=== PATIENT | male | born 1945 | race Caucasian/White ===

== ENCOUNTER 2018-10-09 10:06 | Inpatient (IN) | payer MEDICARE, OTHER ==
[2018-10-09] MEDS ORDERED: SODIUM CHLORIDE 0.9% 500 ML IV ONE (10:19)
[2018-10-09] MEDS ORDERED: 0.9 % SODIUM CHLORIDE 1000ML 1,000 ML IV PRN ×2 (10:19→13:19)
--- NOTE | 2018-10-09 10:27 | Emergency Department Record ---
History of Present Illness - General Chief complaint: Nausea, Vomiting, Diarrhea Stated complaint: LOOSE STOOLS Time Seen by Provider: 10/09/18 10:18 Source: Patient Mode of Arrival: Stretcher Limitations: No limitations - History of Present Illness Initial comments: Pt to ED by EMS with from home for one week of diarrhea. Pt relates frequent brown watery diarrhea that he is unable to "control". Pt is soiled with feces to feet and arm. Pt relates an increase in weakness to the point of needing a walker and falling to the floor. There is no report of CP or BIB. Denies ARIZA or head injury with fall. found him on the floor and after rest he was able to get himself up. Pt relates alcohol use on a daily basis. No recent illness, no AB treatments, no travel or new foods. There is no nausea or vomiting. MD complaint: Diarrhea Onset/Timin -: Week(s) Associated Abdominal Pain: No Severity: Moderate Severity scale (1-10): 4 Associated Symptoms: Weakness - Related Data Home Medications Medication Instructions Recorded Confirmed Last Taken Atorvastatin Calcium 20 mg PO QHS 10/09/18 10/09/18 Unknown Carvedilol [Coreg] 3.125 mg PO BID 10/09/18 10/09/18 Unknown Cholecalciferol (Vitamin D3) 2,000 unit SQ DAILY 10/09/18 10/09/18 Unknown [Vitamin D3] Diphenhydramine HCl [Benadryl] 25 mg PO DAILY 10/09/18 10/09/18 Unknown Losartan Potassium 25 mg PO DAILY 10/09/18 10/09/18 Unknown Pregabalin [Lyrica] 25 mg PO BID 10/09/18 10/09/18 Unknown Previous Rx's Medication Instructions Recorded Clonidine HCl [Catapres ER] 0.1 mg PO BID #14 tab 12/23/14 Allergies Allergy/AdvReac Type Severity Reaction Status Date / Time cephalexin monohydrate Allergy HIVES Verified 12/23/14 17:40 [From Keflex] enalapril Allergy PT UNSURE Verified 10/09/18 10:56 OF REACTION Review of Systems Constitutional: Reports: Weakness. Denies: Chills, Fever Eyes: Denies: Eye discharge, Photophobia ENT: Denies: Congestion, Ear pain, Hearing loss Respiratory: Denies: Cough, Dyspnea, Wheezes Cardiovascular: Denies: Arrhythmia, Chest pain, Palpitations, Syncope Endocrine: Reports: Fatigue. Denies: Polydipsia, Polyuria Gastrointestinal: Reports: As per HPI, Diarrhea. Denies: Hematochezia Genitourinary: Denies: Dysuria, Frequency, Hematuria Musculoskeletal: Denies: Arthralgia, Back pain Skin: Reports: Bruising Neurological: Reports: Weakness. Denies: Confusion, Headache, Seizure, Tremors Psychiatric: Denies: Anxiety Hematological/Lymphatic: Denies: Anemia Past Medical History - SOCIAL HISTORY Smoking Status: Current every day smoker - RESPIRATORY Hx Respiratory Disorders: No - CARDIOVASCULAR Hx Cardio Disorders: Yes Hx Hypertension: Yes Comment:: High cholestrol - NEURO Hx Neuro Disorders: No - GI Hx GI Disorders: Yes Hx GI Bleed: Yes - Hx Genitourinary Disorders: Yes Hx UTI: Yes - ENDOCRINE Hx Endocrine Disorders: Yes Hx Diabetes: Yes - MUSCULOSKELETAL Hx Musculoskeletal Disorders: No - PSYCH Hx Psych Problems: No - HEMATOLOGY/ONCOLOGY Hx Hematology/Oncology Disorders: No Physical Exam - General General Appearance: Alert, Oriented x3, Cooperative, Mild distress - Head Head exam: Atraumatic Head exam detail: negative: Abrasion, Contusion, Salvador's sign, Hematoma - Eye Eye exam: Normal appearance, PERRL - ENT ENT exam: Normal exam, Mucous membranes moist, Normal external ear exam, Normal orophraynx, TM's normal bilaterally - Neck Neck exam: Normal inspection, Full ROM. negative: Tenderness - Respiratory Respiratory exam: Normal lung sounds bilaterally. negative: Rhonchi, Wheezes - Cardiovascular Cardiovascular Exam: negative: Regular rate, Normal rhythm, Tachycardia Peripheral Pulses: 2+: Radial (R), Radial (L) - GI/Abdominal GI/Abdominal exam: Soft, Normal bowel sounds. negative: Guarding, Rigid, Tenderness - Rectal Rectal exam: Heme (-) stool. negative: Bloody stool, Fecal impaction, Hemorrhoids - Extremities Extremities exam: Full ROM, Pedal edema (bilateral ankle swelling). negative: Calf tenderness, Tenderness - Neurological Neurological exam: Alert, CN II-XII intact, Oriented X3 - Psychiatric Psychiatric exam: Normal affect, Normal mood - Skin Skin exam: Abrasion (to left knee - Bruising to right knee and hip. ) Course - Reevaluation(s) Reevaluation #1: 10/09/18 11:57 Spoke in private with and daughter. Discussed findings and plan. Admission. Aware of alcohol abuse. No hx of withdraw or seizure. Procedures - EKG Initial Date: 10/09/18 Time: 10:44 EKG: Normal EKG (SR at 84) - Stool Hemoccult Procedural Steps Taken: stool placed in appropria, developer placed on stool, controls appropriately po Hemoccult result: negative Medical Decision Making - Lab Data Result diagrams: 10/09/18 10:10 10/09/18 10:10 Disposition Disposition: Admit Clinical Impression: Hyponatremia, Renal insufficiency, Elevated bilirubin, Transaminasemia, Alcohol abuse, Gait instability, Cough Diarrhea Qualifiers: Diarrhea type: unspecified type Qualified Code(s): R19.7 - Diarrhea, unspecified Disposition: Still a Patient at [facility] Decision to Admit: Admit from ER Decision to Admit Date: 10/09/18 Decision to Admit Time: 11:55 Accepting Physician: Elise Time Discussed w/Accepting Physician: 11:55 Condition: (3) Guarded Forms: Patient Portal Access Time of Disposition: 11:57 Quality - Quality Measures Quality Measures: N/A - Blood Pressure Screening View Details: Yes Does Patient Have Any of the Following: No, Active Dx of HTN Blood Pressure Classification: Pre-Hypertensive BP Reading Systolic Measurement: 127 Diastolic Measurement: 64 Screening for High Blood Pressure: Patient Exclusion, Hx of HTN [[id number]]
[2018-10-09 10:48] LABS: BASO % 0.3 % (0-6); EOS % 0.1 % (0-6); GRAN % 67.1 % (47-80); HEMATOCRIT 37.6 % (42.0-52.0); HEMOGLOBIN 13.4 gm/dl (14.0-18.0); LYMPH % 18.5 % (16-45); MEAN CELL VOLUME 98.4 fl (81-97); MEAN CORPUSCULAR HGB CONC 35.6 g/dl (32-36); MEAN PLATELET VOLUME 9.9 fl (7.4-10.4); PLATELET COUNT 112 K/uL (130-400); RED BLOOD COUNT 3.82 M/uL (4.40-5.70); WHITE BLOOD COUNT W/O DIFF 7.2 K/uL (4.2-12.2)
[2018-10-09 10:58] LABS: BILIRUBIN,TOTAL 1.6 mg/dL (0.2-1.0); CREATININE 1.8 mg/dL (0.7-1.2)
[2018-10-09 11:03] LABS: ALB/GLOB RATIO 1.3 (1.1-1.8)
--- NOTE | 2018-10-09 12:29 | History & Physical ---
History of Present Illness - Date of Service Date of Service for History & Physical: 10/10/18 - History of Present Illness History of Present Illness: Mr. Koroma is a 73 y/o male with a one week history of 6-7 loose stools daily for the past 1 week. The patient says that he had diarrhea about 1 month ago which was attributed to his Metformin which was stopped and his symptoms resolved. But he again began having symptoms last week despite not starting any new medications or having change in diet. The patient reports generalized weakness and two falls at home during this period. He says that he has had falls before due to his diabetic neuropathy but this seems to have gotten worse with the abdominal symptoms. He denies abdominal pain, fevers, chills, recent sick contacts or travel. The patient says that he does drink alcohol, about 6 beers daily and mixed cocktails in the evening. He says that his last alcoholic beverage was yesterday evening. On arrival to [facility] ED the patient had another loose, non-bloody bowel movement and also desaturated significantly from a persistent cough he had. Chest xray is suspicious for a right tony lesion and he is noted to be in contact with a person with community acquired pneumonia. Travel Screening - Travel/Exposure Within Last 30 Days Have you traveled within the last 30 days?: No Review of Systems Constitutional: Reports: Weakness. Denies: Chills, Fever Eyes: Denies: Eye discharge, Photophobia ENT: Denies: Congestion, Ear pain, Hearing loss Respiratory: Denies: Cough, Dyspnea, Wheezes Cardiovascular: Denies: Arrhythmia, Chest pain, Palpitations, Syncope Endocrine: Reports: Fatigue. Denies: Polydipsia, Polyuria Gastrointestinal: Reports: As per HPI, Diarrhea. Denies: Hematochezia Genitourinary: Denies: Dysuria, Frequency, Hematuria Musculoskeletal: Denies: Arthralgia, Back pain Skin: Reports: Bruising Neurological: Reports: Weakness. Denies: Confusion, Headache, Seizure, Tremors Psychiatric: Denies: Anxiety Hematological/Lymphatic: Denies: Anemia Past Medical History - SOCIAL HISTORY Smoking Status: Current every day smoker - RESPIRATORY Hx Respiratory Disorders: No - CARDIOVASCULAR Hx Cardio Disorders: Yes Hx Hypertension: Yes Comment:: High cholestrol - NEURO Hx Neuro Disorders: No - GI Hx GI Disorders: Yes Hx GI Bleed: Yes - Hx Genitourinary Disorders: Yes Hx UTI: Yes - ENDOCRINE Hx Endocrine Disorders: Yes Hx Diabetes: Yes - MUSCULOSKELETAL Hx Musculoskeletal Disorders: No - PSYCH Hx Psych Problems: No - HEMATOLOGY/ONCOLOGY Hx Hematology/Oncology Disorders: No Family Medical History Any Significant Family History?: No H&P Meds/Allergies - Allergies Allergies: Allergies Allergy/AdvReac Type Severity Reaction Status Date / Time cephalexin monohydrate Allergy HIVES Verified 12/23/14 17:40 [From Keflex] enalapril Allergy PT UNSURE Verified 10/09/18 10:56 OF REACTION - Home Medications Home Medications Medication Instructions Recorded Confirmed Last Taken Atorvastatin Calcium 20 mg PO QHS 10/09/18 10/09/18 Unknown Carvedilol [Coreg] 3.125 mg PO BID 10/09/18 10/09/18 Unknown Cholecalciferol (Vitamin D3) 2,000 unit SQ DAILY 10/09/18 10/09/18 Unknown [Vitamin D3] Diphenhydramine HCl [Benadryl] 25 mg PO DAILY 10/09/18 10/09/18 Unknown Losartan Potassium 25 mg PO DAILY 10/09/18 10/09/18 Unknown Pregabalin [Lyrica] 25 mg PO BID 10/09/18 10/09/18 Unknown Previous Rx's Medication Instructions Recorded Clonidine HCl [Catapres ER] 0.1 mg PO BID #14 tab 12/23/14 - Active Medications Active Medications: Current Medications Sodium Chloride () 1,000 mls @ 125 mls/hr IV .Q8H PRN PRN Reason: LARGE VOLUME IV Last Admin: 10/09/18 10:30 Dose: 125 mls/hr Physical Exam - Vital Signs Vital Signs: Vital Signs - Last 24 Hrs Temp Pulse Pulse Resp BP BP Pulse Ox 10/09/18 11:40 83 18 141/70 96 10/09/18 10:18 98.2 F 79 18 127/64 91 L - General General Appearance: Alert, Oriented x3, Cooperative, Mild distress Limitations: No limitations - Head Head exam: Atraumatic Head exam detail: negative: Abrasion, Contusion, Salvador's sign, Hematoma - Eye Eye exam: Normal appearance, PERRL - ENT ENT exam: Normal exam, Mucous membranes moist, Normal external ear exam, Normal orophraynx, TM's normal bilaterally - Neck Neck exam: Normal inspection, Full ROM. negative: Tenderness - Respiratory Respiratory exam: Normal lung sounds bilaterally. negative: Rhonchi, Wheezes - Cardiovascular Cardiovascular Exam: negative: Regular rate, Normal rhythm, Tachycardia Peripheral Pulses: 2+: Radial (R), Radial (L), Dorsalis Pedis (R), Dorsalis Pedis (L) - GI/Abdominal GI/Abdominal exam: Soft, Normal bowel sounds. negative: Guarding, Rigid, Tenderness - Rectal Rectal exam: Heme (-) stool. negative: Bloody stool, Fecal impaction, Hemorrhoids - Extremities Extremities exam: Full ROM, Pedal edema (bilateral ankle swelling, pitting +1 ) . negative: Calf tenderness, Tenderness - Neurological Neurological exam: Alert, CN II-XII intact, Oriented X3 - Psychiatric Psychiatric exam: Normal affect, Normal mood - Skin Skin exam: Abrasion (to left knee - Bruising to right knee and hip. ) Results - Labs Result Diagrams: 10/10/18 06:17 10/10/18 06:17 Labs Last 24 Hours: Laboratory Results - last 24 hr 10/09/18 10/09/18 10/09/18 10:10 10:10 10:45 WBC 7.2 RBC 3.82 L Hgb 13.4 L Hct 37.6 L MCV 98.4 H MCH 35.0 H MCHC 35.6 RDW 12.0 Plt Count 112 L MPV 9.9 Gran % 67.1 Lymphocytes % 18.5 Monocytes % 14.0 H Eosinophils % 0.1 Basophils % 0.3 Sodium 125 L Potassium 3.5 Chloride 81 L Carbon Dioxide 27.0 Anion Gap 17.0 H BUN 24 H Creatinine 1.8 H Estimated GFR 40 Random Glucose 108 Calcium 8.9 Magnesium Total Bilirubin 1.60 H AST 331 H ALT 68 H Alkaline Phosphatase 99 Total Protein 7.0 Albumin 4.0 Globulin 3.0 Albumin/Globulin Ratio 1.3 Ethyl Alcohol 0.010 10/09/18 12:02 WBC RBC Hgb Hct MCV MCH MCHC RDW Plt Count MPV Gran % Lymphocytes % Monocytes % Eosinophils % Basophils % Sodium Potassium Chloride Carbon Dioxide Anion Gap BUN Creatinine Estimated GFR Random Glucose Calcium Magnesium 1.5 L Total Bilirubin AST ALT Alkaline Phosphatase Total Protein Albumin Globulin Albumin/Globulin Ratio Ethyl Alcohol VTE H&P Assessment - Risk for VTE Risk for VTE: Yes Risk Level: High Risk Assessment Date: 10/09/18 Risk Assessment Time: 16:05 VTE Orders Placed or Will Be Placed: Yes AMI H&P Plan - EKG Initial Date: 10/09/18 Time: 10:44 EKG: Normal EKG (SR at 84) Plan - Inpatient Certification Inpatient Certification: Diarrhea/Weakness/Dehydration requiring IVF. 10/09/18 16:05 - Detailed Diagnosis and Plan (1) Diarrhea Current Visit: Yes Status: Acute Qualifiers: Diarrhea type: unspecified type Qualified Code(s): R19.7 - Diarrhea, unspecified Base Code: R19.7 - DIARRHEA, UNSPECIFIED Comment: 10/09/18: - DDx: infectious viral vs bacterial, medication induced. - Stool studies ordered: leukocytes, C diff, fecal occult blood. - IVF bolused in ED 500mL, continuous fluids @ 100mL/hr. (2) Alcohol abuse Current Visit: Yes Status: Acute Base Code: F10.10 - ALCOHOL ABUSE, UNCOMPLICATED Comment: 10/09/18: - 6-8 beers daily, liquor daily. - last drink approx 18 hours ago. - CIWA score <13, check Q24H - Cont to monitor daily for signs of withdrawal. - Thiamine ordered. No folate due allergic skin reaction. (3) Hyponatremia Current Visit: Yes Status: Acute Base Code: E87.1 - HYPO-OSMOLALITY AND HYPONATREMIA Comment: 10/09/18: - Likely hypovolemic hypovolemia due to ongoing diarrhea. - Na 125 - Repletion with Nacl 0.9% 100mL/hr. - Target Na repletion over the next 12-24 hours is 130. (4) Renal insufficiency Current Visit: Yes Status: Acute Base Code: N28.9 - DISORDER OF KIDNEY AND URETER, UNSPECIFIED Comment: 10/09/18: - Bun/Cr: 24/1.8 - Fluid challenge with bolus Nacl and continuous over 24 hours. - Check BMP with morning labs. (5) Transaminasemia Current Visit: Yes Status: Acute Base Code: R74.0 - NONSPEC ELEV OF LEVELS OF TRANSAMNS & LACTIC ACID DEHYDRGNSE Comment: 10/09/18: - AST/ALT 331/68 - Hx of Etoh abuse with cirrhotic liver. (6) Right middle lobe pulmonary infiltrate Current Visit: Yes Status: Acute Base Code: R91.8 - OTHER NONSPECIFIC ABNORMAL FINDING OF LUNG FIELD Comment: 10/09/18: - Cough, desaturations <90s on admission. - CXR: shows right middle lobe infiltrate or atelectasis. - Starting Levaquin 750mg IV Q24H - Oxygen to maintain sats > 92 % - Albuterol nebs Q4H PRN (7) Frequent falls Current Visit: Yes Status: Acute Base Code: R29.6 - REPEATED FALLS Comment : 10/09/18: - Due to diabetic neuropathy, weakness and Etoh use. - Fall precuations w/ bed alarm and assistance with ambulation. (8) Diabetes mellitus, type II Current Visit: Yes Status: Acute Base Code: E11.9 - TYPE 2 DIABETES MELLITUS WITHOUT COMPLICATIONS Comment: 10/09/18: - Was on Metformin at home but held due to diarrhea. - Insulin low dose sliding scale ordered. - Accuchecks TIDAC - ADA diet (9) DVT prophylaxis Current Visit: Yes Status: Acute Base Code: [id number] - Comment: 10/09/18: - Lovenox 40mg SQ QD (10) Hypomagnesemia Current Visit: Yes Status: Acute Base Code: E83.42 - HYPOMAGNESEMIA Comment: 09/26/18: - Mg 1.5 - Replete with 2gm Mg and recheck magnesium. (11) HTN (hypertension) Current Visit: Yes Status: Acute Base Code: I10 - ESSENTIAL (PRIMARY) HYPERTENSION Comment: 10/09/18: - Resume home meds. (12) Full code status Current Visit: Yes Status: Acute Base Code: Z78.9 - OTHER SPECIFIED HEALTH STATUS Comment: 10/09/18: - Pt is full code
[2018-10-09 15:14] LABS: URINE APPEARANCE CLEAR; URINE BILIRUBIN NEGATIVE (NEGATIVE); URINE BLOOD LARGE (NEGATIVE); URINE GLUCOSE (UA) NEGATIVE (NEGATIVE); URINE KETONE TRACE (NEGATIVE); URINE LEUKOCYTE ESTERASE NEGATIVE (NEGATIVE); URINE NITRITE NEGATIVE (NEGATIVE)
[2018-10-09 15:15] LABS: URINE COLOR AMBER
[2018-10-09 15:24] LABS: URINE AMORPHOUS SEDIMENT 1+; URINE RBC 21 - 35 (NONE SEEN); URINE WBC NONE SEEN (0-2/hpf)
[2018-10-09] MEDS: ENOXAPARIN 40 MG/0.4 ML SYR SQ SCH (17:12)
[2018-10-09] MEDS: LEVOFLOXACIN 500MG IVPB 500 MG/100 ML BAG IVPB SCH (17:34)
[2018-10-09] MEDS: NOVOLOG FLEXPEN (INSULIN ASPART) 100 UNITS/ML SQ SCH (18:31)
[2018-10-09] MEDS ORDERED: PNEUM 13-VAL/PF 0.5 ML IM ONE (19:48)
[2018-10-09] MEDS ORDERED: MAGNESIUM SULFATE 16 MEQ in 0.9 % SODIUM CHLORIDE 100ML 100 ML IV ONE (20:42)
[2018-10-09] MEDS: ALBUTEROL SULFATE (0.083%) 2.5 MG/3 ML NEB INH PRN (21:03)
[2018-10-09] MEDS: CLONIDINE HCL 0.1 MG TABLET PO SCH (22:05)
[2018-10-09] MEDS: ATORVASTATIN 20 MG TABLET PO SCH (22:06)
[2018-10-09] MEDS: CARVEDILOL 12.5 MG TABLET PO SCH (22:06)
[2018-10-09] MEDS: PREGABALIN 50 MG CAPSULE PO SCH (22:06)
[2018-10-10 06:30] LABS: HEMATOCRIT 32.2 % (42.0-52.0); HEMOGLOBIN 11.5 gm/dl (14.0-18.0); MEAN CELL VOLUME 98.5 fl (81-97); MEAN CORPUSCULAR HGB CONC 35.7 g/dl (32-36); MEAN PLATELET VOLUME 9.4 fl (7.4-10.4); PLATELET COUNT 88 K/uL (130-400); RED BLOOD COUNT 3.27 M/uL (4.40-5.70); RED CELL DISTRIBUTION WIDTH 11.7 % (11.5-14.5); WHITE BLOOD COUNT W/O DIFF 7.1 K/uL (4.2-12.2)
[2018-10-10 06:31] LABS: MEAN CORPUSCULAR HEMOGLOBIN 35.1 pg (27-33)
[2018-10-10 06:53] LABS: ALB/GLOB RATIO 1.4 (1.1-1.8); ALBUMIN 3.2 g/dL (4.0-5.0); ALKALINE PHOSPHATASE 78 U/L (55-149); ALT/SGPT 55 U/L (<41); AST/SGOT 222 U/L (10.0-50.0); BLOOD UREA NITROGEN 14 mg/dL (8-23); CREATININE 0.9 mg/dL (0.7-1.2); EST GLOMERULAR FILTRATION RATE > 60 mL/min; GLUCOSE,RANDOM 111 mg/dL (74-109); TOTAL PROTEIN 5.5 g/dL (6.6-8.7)
[2018-10-10] MEDS ORDERED: PANTOPRAZOLE SODIUM 40 MG TABLET PO SCH (07:00)
--- NOTE | 2018-10-10 07:20 | RADIOLOGY REPORT ---
EXAM: CHEST, TWO VIEWS HISTORY: FALL, COUGH, WEAKNESS. TECHNIQUE: Two views of the chest were obtained. Comparison: Chest radiograph 12/23/14. FINDINGS: The cardiac silhouette is within normal size limits. The thoracic aorta is calcified. Suggestion of a mild right infrahilar pulmonary opacity. No pleural fluid collection or pneumothorax seen. IMPRESSION: SUGGESTION OF A MILD RIGHT INFRAHILAR PULMONARY OPACITY WHICH COULD REPRESENT ATELECTASIS OR ACUTE AIR SPACE DISEASE SUCH PNEUMONIA. JOB NUMBER: [id number] [facility]
--- NOTE | 2018-10-10 07:23 | RADIOLOGY REPORT ---
EXAM: ABDOMEN, TWO VIEWS HISTORY: COUGH, WEAKNESS, FALL. TECHNIQUE: Supine and upright AP views of the abdomen were obtained. Comparison: Lumbar radiograph 07/23/17. FINDINGS: No visible pneumoperitoneum. Multiple gas containing nondilated small bowel loops are seen throughout the abdomen. Small to moderate volume of stool scattered throughout the abdomen. Gas is noted within the rectum. No visible pneumoperitoneum. Scattered vascular calcifications. Serpiginous areas of sclerosis within both femoral heads suggesting osteonecrosis. IMPRESSION: 1. NONOBSTRUCTIVE BOWEL GAS PATTERN. 2. SMALL TO MODERATE COLONIC STOOL BURDEN. 3. 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 JOB NUMBER: [id number] [facility]
[2018-10-10] MEDS ORDERED: POTASSIUM CHLORIDE 20 MEQ/15ML CUP PO ONE (08:36)
[2018-10-10] MEDS ORDERED: POTASSIUM CHLORIDE 20 MEQ TABLET PO ONE (08:36)
[2018-10-10] MEDS ORDERED: POTASSIUM CHL 20MEQ IN 1L NS 20 MEQ in 0.9 % SODIUM CHLORIDE 1000ML 1 BAG IV SCH ×2 (09:30)
[2018-10-10] MEDS: NOVOLOG FLEXPEN (INSULIN ASPART) 100 UNITS/ML SQ SCH ×3 (09:38→17:52)
[2018-10-10] MEDS: CLONIDINE HCL 0.1 MG TABLET PO SCH ×2 (09:39→22:50)
[2018-10-10] MEDS: CHOLECALCIFEROL 1,000 UNIT TABLET PO SCH (09:39)
[2018-10-10] MEDS: ENOXAPARIN 40 MG/0.4 ML SYR SQ SCH (09:40)
[2018-10-10] MEDS: PREGABALIN 50 MG CAPSULE PO SCH ×2 (09:40→22:50)
[2018-10-10] MEDS: LOSARTAN POTASSIUM 25 MG TABLET PO SCH (09:40)
[2018-10-10] MEDS: CARVEDILOL 12.5 MG TABLET PO SCH ×2 (09:42→22:50)
[2018-10-10] MEDS: ALBUTEROL SULFATE (0.083%) 2.5 MG/3 ML NEB INH PRN (10:09)
--- NOTE | 2018-10-10 10:20 | Physician Progress Note ---
Subjective - Date Date of Physician Progress Note: 10/10/18 Objective - Vital Signs Vital Signs: Vital Signs - Last 24 Hrs Temp Pulse Pulse Pulse Resp BP BP 10/10/18 09:09 99.2 F 83 18 10/09/18 22:00 98.1 F 93 H 17 198/98 10/09/18 21:03 85 20 10/09/18 21:00 84 18 10/09/18 16:00 98.0 F 76 18 136/80 10/09/18 15:21 98.0 F 10/09/18 13:51 83 18 10/09/18 11:40 83 18 141/70 10/09/18 10:18 98.2 F 79 18 127/64 BP Pulse Ox 10/10/18 09:09 147/83 97 10/09/18 22:00 172/92 96 10/09/18 21:03 97 10/09/18 21:00 10/09/18 16:00 95 10/09/18 15:21 10/09/18 13:51 10/09/18 11:40 96 10/09/18 10:18 91 L - General General Appearance: Alert, Oriented x3, Cooperative, Mild distress Limitations: No limitations - Head Head exam: Atraumatic Head exam detail: negative: Abrasion, Contusion, Salvador's sign, Hematoma - Eye Eye exam: Normal appearance, PERRL - ENT ENT exam: Normal exam, Mucous membranes moist, Normal external ear exam, Normal orophraynx, TM's normal bilaterally - Neck Neck exam: Normal inspection, Full ROM. negative: Tenderness - Respiratory Respiratory exam: Normal lung sounds bilaterally. negative: Rhonchi, Wheezes - Cardiovascular Cardiovascular Exam: negative: Regular rate, Normal rhythm, Tachycardia Peripheral Pulses: 2+: Radial (R), Radial (L), Dorsalis Pedis (R), Dorsalis Pedis (L) - GI/Abdominal GI/Abdominal exam: Soft, Normal bowel sounds. negative: Guarding, Rigid, Tenderness - Rectal Rectal exam: Heme (-) stool. negative: Bloody stool, Fecal impaction, Hemorrhoids - Extremities Extremities exam: Full ROM, Pedal edema (bilateral ankle swelling, pitting +1 ) . negative: Calf tenderness, Tenderness - Neurological Neurological exam: Alert, CN II-XII intact, Oriented X3 - Psychiatric Psychiatric exam: Normal affect, Normal mood - Skin Skin exam: Abrasion (to left knee - Bruising to right knee and hip. ) Assessment and Plan - Assessment and Plan (1) Diarrhea Current Visit: Yes Status: Acute Qualifiers: Diarrhea type: unspecified type Qualified Code(s): R19.7 - Diarrhea, unspecified Base Code: R19.7 - DIARRHEA, UNSPECIFIED Comment: 10/10/18: - DDx: infectious viral vs bacterial, medication induced. - Stool studies ordered: leukocytes, C diff, fecal occult blood. - IVF bolused in ED 500mL, continuous fluids @ 100mL/hr. - 1 loose bowel movement last night. (2) Alcohol abuse Current Visit: Yes Status: Acute Base Code: F10.10 - ALCOHOL ABUSE, UNCOMPLICATED Comment: 10/10/18: - 6-8 beers daily, liquor daily. - last drink approx 18 hours ago. - CIWA score <13, check Q24H - Cont to monitor daily for signs of withdrawal. - Thiamine ordered. No folate due allergic skin reaction. (3) Hyponatremia Current Visit: Yes Status: Acute Base Code: E87.1 - HYPO-OSMOLALITY AND HYPONATREMIA Comment: 10/10/18: - Likely hypovolemic hypovolemia due to ongoing diarrhea. - Na 125 --> 128 - Repletion with Nacl 0.9% 100mL/hr. - Target Na repletion over the next 12-24 hours is 130. (4) Renal insufficiency Current Visit: Yes Status: Acute Base Code: N28.9 - DISORDER OF KIDNEY AND URETER, UNSPECIFIED Comment: 10/10/18: - Bun/Cr: 24/1.8 --> 14/0.9 -resolved. - Repeat labs in the morning. (5) Transaminasemia Current Visit: Yes Status: Acute Base Code: R74.0 - NONSPEC ELEV OF LEVELS OF TRANSAMNS & LACTIC ACID DEHYDRGNSE Comment: 10/10/18: - AST/ALT 331/68 --> 222/55 - Hx of Etoh abuse with cirrhotic liver. (6) Right middle lobe pulmonary infiltrate Current Visit: Yes Status: Acute Base Code: R91.8 - OTHER NONSPECIFIC ABNORMAL FINDING OF LUNG FIELD Comment: 10/10/18: - Cough, desaturations <90s on admission. - CXR: shows right middle lobe infiltrate or atelectasis. - Starting Levaquin 750mg IV Q24H - Oxygen to maintain sats > 92 % - Albuterol nebs Q4H PRN (7) Frequent falls Current Visit: Yes Status: Acute Base Code: R29.6 - REPEATED FALLS Comment : 10/10/18: - Due to diabetic neuropathy, weakness and Etoh use. - Fall precuations w/ bed alarm and assistance with ambulation. (8) Diabetes mellitus, type II Current Visit: Yes Status: Acute Base Code: E11.9 - TYPE 2 DIABETES MELLITUS WITHOUT COMPLICATIONS Comment: 10/10/18: - Insulin low dose sliding scale ordered. - Accuchecks TIDAC - ADA diet (9) Hypomagnesemia Current Visit: Yes Status: Acute Base Code: E83.42 - HYPOMAGNESEMIA Comment: 10/10/18: - Mg 1.5 - Replete with 2gm Mg and recheck magnesium. (10) DVT prophylaxis Current Visit: Yes Status: Acute Base Code: [id number] - Comment: 10/10/18: - Lovenox 40mg SQ QD (11) HTN (hypertension) Current Visit: Yes Status: Acute Base Code: I10 - ESSENTIAL (PRIMARY) HYPERTENSION Comment: 10/10/18: - Resume home meds. (12) Full code status Current Visit: Yes Status: Acute Base Code: Z78.9 - OTHER SPECIFIED HEALTH STATUS Comment: 10/10/18: - Pt is full code (13) Hypokalemia Current Visit: Yes Status: Acute Base Code: E87.6 - HYPOKALEMIA Comment: 10/10/18: - K 3.2 - Repeltion with Klor-con 40meq PO, 20meq IVP. - Check potassium this afternoon. Results - Labs Result Diagrams: 10/10/18 06:17 10/10/18 06:17 Labs Last 24 Hours: Laboratory Results - last 24 hr 10/09/18 10/09/18 10/09/18 10:10 10:10 10:45 WBC 7.2 RBC 3.82 L Hgb 13.4 L Hct 37.6 L MCV 98.4 H MCH 35.0 H MCHC 35.6 RDW 12.0 Plt Count 112 L MPV 9.9 Gran % 67.1 Neutrophils % Band Neutrophils % Lymphocytes % 18.5 Monocytes % 14.0 H Eosinophils % 0.1 Basophils % 0.3 Lymphocytes Monocytes Basophils Eosinophil Count Sodium 125 L Potassium 3.5 Chloride 81 L Carbon Dioxide 27.0 Anion Gap 17.0 H BUN 24 H Creatinine 1.8 H Estimated GFR 40 POC Glucose Random Glucose 108 Calcium 8.9 Magnesium Total Bilirubin 1.60 H AST 331 H ALT 68 H Alkaline Phosphatase 99 Total Protein 7.0 Albumin 4.0 Globulin 3.0 Albumin/Globulin Ratio 1.3 Vitamin B12 Urine Color Urine Appearance Urine pH Ur Specific [place] Urine Protein Urine Glucose (UA) Urine Ketones Urine Blood Urine Nitrite Urine Bilirubin Urine Urobilinogen Ur Leukocyte Esterase Urine RBC Urine WBC Ur Epithelial Cells Amorphous Sediment Stool Occult Blood Ethyl Alcohol 0.010 C. difficile Ag & Toxin 10/09/18 10/09/18 10/09/18 12:02 15:00 18:10 WBC RBC Hgb Hct MCV MCH MCHC RDW Plt Count MPV Gran % Neutrophils % Band Neutrophils % Lymphocytes % Monocytes % Eosinophils % Basophils % Lymphocytes Monocytes Basophils Eosinophil Count Sodium Potassium Chloride Carbon Dioxide Anion Gap BUN Creatinine Estimated GFR POC Glucose 143 H Random Glucose Calcium Magnesium 1.5 L Total Bilirubin AST ALT Alkaline Phosphatase Total Protein Albumin Globulin Albumin/Globulin Ratio Vitamin B12 Urine Color [place] Urine Appearance Clear Urine pH 6.0 Ur Specific [place] 1.020 Urine Protein 30 mg/dl H Urine Glucose (UA) Negative Urine Ketones Trace H Urine Blood Large H Urine Nitrite Negative Urine Bilirubin Negative Urine Urobilinogen 1.0 Ur Leukocyte Esterase Negative Urine RBC 21 - 35 Urine WBC None seen Ur Epithelial Cells 3 - 6 Amorphous Sediment 1+ Stool Occult Blood Ethyl Alcohol C. difficile Ag & Toxin 10/09/18 10/09/18 10/10/18 19:48 19:48 06:17 WBC 7.1 RBC 3.27 L Hgb 11.5 L Hct 32.2 L MCV 98.5 H MCH 35.1 H MCHC 35.7 RDW 11.7 Plt Count 88 L MPV 9.4 Gran % Neutrophils % 76.0 Band Neutrophils % 0.0 Lymphocytes % Monocytes % Eosinophils % Not Reportable Basophils % Not Reportable Lymphocytes 14.0 L Monocytes 10.0 H Basophils 0.0 Eosinophil Count 0.0 Sodium Potassium Chloride Carbon Dioxide Anion Gap BUN Creatinine Estimated GFR POC Glucose Random Glucose Calcium Magnesium Total Bilirubin AST ALT Alkaline Phosphatase Total Protein Albumin Globulin Albumin/Globulin Ratio Vitamin B12 Urine Color Urine Appearance Urine pH Ur Specific [place] Urine Protein Urine Glucose (UA) Urine Ketones Urine Blood Urine Nitrite Urine Bilirubin Urine Urobilinogen Ur Leukocyte Esterase Urine RBC Urine WBC Ur Epithelial Cells Amorphous Sediment Stool Occult Blood Negative Ethyl Alcohol C. difficile Ag & Toxin Not detected 10/10/18 10/10/18 06:17 06:34 WBC RBC Hgb Hct MCV MCH MCHC RDW Plt Count MPV Gran % Neutrophils % Band Neutrophils % Lymphocytes % Monocytes % Eosinophils % Basophils % Lymphocytes Monocytes Basophils Eosinophil Count Sodium 128 L Potassium 3.2 L Chloride 90 L Carbon Dioxide 27.0 Anion Gap 11.0 BUN 14 Creatinine 0.9 Estimated GFR > 60 POC Glucose Random Glucose 111 H Calcium 8.0 L Magnesium Total Bilirubin 0.90 AST 222 H ALT 55 H Alkaline Phosphatase 78 Total Protein 5.5 L Albumin 3.2 L Globulin 2.3 Albumin/Globulin Ratio 1.4 Vitamin B12 Cancelled 873.8 Urine Color Urine Appearance Urine pH Ur Specific [place] Urine Protein Urine Glucose (UA) Urine Ketones Urine Blood Urine Nitrite Urine Bilirubin Urine Urobilinogen Ur Leukocyte Esterase Urine RBC Urine WBC Ur Epithelial Cells Amorphous Sediment Stool Occult Blood Ethyl Alcohol C. difficile Ag & Toxin DVT/PE Assessment - Risk for VTE Risk for VTE: No Risk Level: High Risk Assessment Date: 10/09/18 Risk Assessment Time: 16:05 VTE Orders Placed or Will Be Placed: Yes - Active Medicaitons Current Medications: Current Medications Albuterol Sulfate (Albuterol Sulfate) 2.5 mg INH RESP.Q4H PRN PRN Reason: DIFFICULTY IN BREATHING Last Admin: 10/10/18 10:09 Dose: 2.5 mg Atorvastatin Calcium (Lipitor) 20 mg PO QHS [facility] Last Admin: 10/09/18 22:06 Dose: 20 mg Carvedilol (Coreg) 12.5 mg PO BID [facility] Last Admin: 10/10/18 09:42 Dose: 12.5 mg Clonidine HCl (Catapres) 0.1 mg PO BID [facility] Last Admin: 10/10/18 09:39 Dose: 0.1 mg Enoxaparin Sodium (Lovenox) 40 mg SQ DAILY [facility] Last Admin: 10/10/18 09:40 Dose: 40 mg Sodium Chloride () 1,000 mls @ 100 mls/hr IV .Q10H PRN PRN Reason: LARGE VOLUME IV Last Admin: 10/10/18 01:27 Dose: 100 mls/hr Levofloxacin/Dextrose (Levaquin 500mg Ivpb) 500 mg in 100 mls @ 125 mls/hr IVPB Q24H [facility] Stop: 10/14/18 16:31 Last Infusion: 10/09/18 19:50 Dose: Infused Potassium Chloride/Sodium Chloride 20 meq/ Sodium Chloride 1,000 mls @ 125 mls/ hr IV Q8H [facility] Stop: 10/10/18 17:29 Last Admin: 10/10/18 09:40 Dose: 125 mls/hr Insulin Aspart (Novolog Flexpen) 1 unit SQ TIDINS [facility]; Protocol Last Admin: 10/10/18 09:38 Dose: 2 unit Losartan Potassium (Cozaar) 50 mg PO DAILY [facility] Last Admin: 10/10/18 09:40 Dose: 50 mg [facility] Last Admin: 10/10/18 06:20 Dose: 40 mg Pregabalin (Lyrica) 50 mg PO BID [facility] Last Admin: 10/10/18 09:40 Dose: 50 mg Vitamin D (Vitamin D3) 2,000 unit PO DAILY [facility] Last Admin: 10/10/18 09:39 Dose: 2,000 unit AMI Plan - Labs Result Diagrams: 10/10/18 06:17 10/10/18 06:17
[2018-10-10 11:13] LABS: INFLUENZA A NEGATIVE (NEGATIVE); INFLUENZA B NEGATIVE (NEGATIVE)
[2018-10-10] MEDS: LEVOFLOXACIN 500MG IVPB 500 MG/100 ML BAG IVPB SCH (15:37)
[2018-10-10] MEDS ORDERED: MAGNESIUM SULFATE 16 MEQ in 0.9 % SODIUM CHLORIDE 100ML 100 ML IV ONE (16:25)
[2018-10-10] MEDS: PANTOPRAZOLE SODIUM 40 MG TABLET PO SCH (22:50)
[2018-10-10] MEDS: ATORVASTATIN 20 MG TABLET PO SCH (22:50)
[2018-10-11 06:09] LABS: HEMATOCRIT 33.1 % (42.0-52.0); HEMOGLOBIN 11.1 gm/dl (14.0-18.0); MEAN CORPUSCULAR HEMOGLOBIN 33.5 pg (27-33); MEAN CORPUSCULAR HGB CONC 33.5 g/dl (32-36); MEAN PLATELET VOLUME 9.7 fl (7.4-10.4); PLATELET COUNT 95 K/uL (130-400); RED BLOOD COUNT 3.31 M/uL (4.40-5.70); WHITE BLOOD COUNT W/O DIFF 5.5 K/uL (4.2-12.2)
[2018-10-11 06:22] LABS: ALB/GLOB RATIO 1.4 (1.1-1.8); ALBUMIN 3.1 g/dL (4.0-5.0); ALKALINE PHOSPHATASE 77 U/L (55-149); ALT/SGPT 54 U/L (<41); AST/SGOT 161 U/L (10.0-50.0); BLOOD UREA NITROGEN 8 mg/dL (8-23); CREATININE 0.8 mg/dL (0.7-1.2); EST GLOMERULAR FILTRATION RATE > 60 mL/min; GLUCOSE,RANDOM 105 mg/dL (74-109); TOTAL PROTEIN 5.3 g/dL (6.6-8.7)
[2018-10-11 06:51] LABS: PLATELET ESTIMATE DECREASED (NORMAL)
[2018-10-11] MEDS: NOVOLOG FLEXPEN (INSULIN ASPART) 100 UNITS/ML SQ SCH ×3 (08:39→17:53)
[2018-10-11] MEDS: ENOXAPARIN 40 MG/0.4 ML SYR SQ SCH (10:32)
[2018-10-11] MEDS: CARVEDILOL 12.5 MG TABLET PO SCH ×2 (10:34→21:19)
[2018-10-11] MEDS: PREGABALIN 50 MG CAPSULE PO SCH ×2 (10:34→21:19)
[2018-10-11] MEDS: LOSARTAN POTASSIUM 25 MG TABLET PO SCH (10:34)
[2018-10-11] MEDS: CHOLECALCIFEROL 1,000 UNIT TABLET PO SCH (10:34)
[2018-10-11] MEDS: CLONIDINE HCL 0.1 MG TABLET PO SCH ×2 (10:34→21:19)
--- NOTE | 2018-10-11 11:10 | Physician Progress Note ---
Subjective - Date Date of Physician Progress Note: 10/11/18 Objective - Vital Signs Vital Signs: Vital Signs - Last 24 Hrs Temp Pulse Pulse Resp BP BP Pulse Ox 10/11/18 09:00 78 24 10/11/18 08:00 84 20 155/92 98 10/10/18 21:00 73 10/10/18 20:48 98.1 F 74 17 123/59 94 L 10/10/18 16:00 98.3 F 74 18 129/72 98 10/10/18 15:57 98.1 F 114/75 10/10/18 12:00 98.1 F 67 18 114/75 98 - General General Appearance: Alert, Oriented x3, Cooperative, Mild distress Limitations: No limitations - Head Head exam: Atraumatic Head exam detail: negative: Abrasion, Contusion, Salvador's sign, Hematoma - Eye Eye exam: Normal appearance, PERRL - ENT ENT exam: Normal exam, Mucous membranes moist, Normal external ear exam, Normal orophraynx, TM's normal bilaterally - Neck Neck exam: Normal inspection, Full ROM. negative: Tenderness - Respiratory Respiratory exam: Normal lung sounds bilaterally. negative: Rhonchi, Wheezes - Cardiovascular Cardiovascular Exam: negative: Regular rate, Normal rhythm, Tachycardia Peripheral Pulses: 2+: Radial (R), Radial (L), Dorsalis Pedis (R), Dorsalis Pedis (L) - GI/Abdominal GI/Abdominal exam: Soft, Normal bowel sounds. negative: Guarding, Rigid, Tenderness - Rectal Rectal exam: Heme (-) stool. negative: Bloody stool, Fecal impaction, Hemorrhoids - Extremities Extremities exam: Full ROM, Pedal edema (bilateral ankle swelling, pitting +1 ) . negative: Calf tenderness, Tenderness - Neurological Neurological exam: Alert, CN II-XII intact, Oriented X3 - Psychiatric Psychiatric exam: Normal affect, Normal mood - Skin Skin exam: Abrasion (to left knee - Bruising to right knee and hip. ) Assessment and Plan - Assessment and Plan (1) Dyspnea Current Visit: Yes Status: Acute Base Code: R06.00 - DYSPNEA, UNSPECIFIED Comment: 10/11/18: - CXR suggestive of right middle lobe/tony infiltrate. Chronic lung changes consistent with COPD. - Requiring 2 liters nasal cannula oxygen to maintaine sats > 92%. Sats on room air < 88%. - Home oxygen qualifier to be done today. - Albuterol nebs Q4H PRN, Breo Ellipta daily. Contining on Levaquin 750mg IV Q24H. - PFT's once discharged. (2) Right middle lobe pulmonary infiltrate Current Visit: Yes Status: Acute Base Code: R91.8 - OTHER NONSPECIFIC ABNORMAL FINDING OF LUNG FIELD Comment: 10/11/18: - Cough, desaturations <90s on admission. - CXR: shows right middle lobe infiltrate or atelectasis. - Starting Levaquin 750mg IV Q24H - Oxygen to maintain sats > 92 % - Albuterol nebs Q4H PRN (3) Diarrhea Current Visit: Yes Status: Acute Qualifiers: Diarrhea type: unspecified type Qualified Code(s): R19.7 - Diarrhea, unspecified Base Code: R19.7 - DIARRHEA, UNSPECIFIED Comment: 10/11/18: -resolved - DDx: infectious viral vs bacterial, medication induced. - Stool studies all negative for infection. - D/C IVF, pt increasing PO intake. - D/C contact isolation. (4) Alcohol abuse Current Visit: Yes Status: Acute Base Code: F10.10 - ALCOHOL ABUSE, UNCOMPLICATED Comment: 10/11/18: - 6-8 beers daily, liquor daily. - last drink approx 18 hours ago. - CIWA qshift - Cont to monitor daily for signs of withdrawal. (5) Hyponatremia Current Visit: Yes Status: Acute Base Code: E87.1 - HYPO-OSMOLALITY AND HYPONATREMIA Comment: 10/11/18: - Likely hypovolemic hypovolemia due to ongoing diarrhea. - Na 125 --> 128 --> 130 - D/C fluids and increase PO intake. - Target Na repletion over the next 12-24 hours is 130. (6) Transaminasemia Current Visit: Yes Status: Acute Base Code: R74.0 - NONSPEC ELEV OF LEVELS OF TRANSAMNS & LACTIC ACID DEHYDRGNSE Comment: 10/11/18: - AST/ALT 331/68 --> 222/55--> 161/54 - Hx of Etoh abuse with cirrhotic liver. (7) Frequent falls Current Visit: Yes Status: Acute Base Code: R29.6 - REPEATED FALLS Comment : 10/11/18: - Due to diabetic neuropathy, weakness and Etoh use. - Fall precuations w/ bed alarm and assistance with ambulation. (8) Diabetes mellitus, type II Current Visit: Yes Status: Acute Base Code: E11.9 - TYPE 2 DIABETES MELLITUS WITHOUT COMPLICATIONS Comment: 10/11/18: - Insulin low dose sliding scale ordered. - Accuchecks TIDAC - ADA diet (9) HTN (hypertension) Current Visit: Yes Status: Acute Base Code: I10 - ESSENTIAL (PRIMARY) HYPERTENSION Comment: 10/11/18: - Resume home meds. (10) DVT prophylaxis Current Visit: Yes Status: Acute Base Code: [id number] - Comment: 10/11/18: - Lovenox 40mg SQ QD (11) Full code status Current Visit: Yes Status: Acute Base Code: Z78.9 - OTHER SPECIFIED HEALTH STATUS Comment: 10/11/18: - Pt is full code - Disposition Disposition: Anticipate D/C home tomorrow. Results - Labs Result Diagrams: 10/11/18 05:55 10/11/18 05:55 Labs Last 24 Hours: Laboratory Results - last 24 hr 10/10/18 10/10/18 10/10/18 10:56 13:00 15:09 WBC RBC Hgb Hct MCV MCH MCHC RDW Plt Count MPV Neutrophils % Band Neutrophils % Eosinophils % Basophils % Lymphocytes Monocytes Platelet Estimate RBC Morphology Sodium Potassium 3.8 Chloride Carbon Dioxide Anion Gap BUN Creatinine Estimated GFR POC Glucose 164 H Random Glucose Calcium Magnesium 1.4 L Total Bilirubin AST ALT Alkaline Phosphatase Total Protein Albumin Globulin Albumin/Globulin Ratio Influenza Type A Ag Negative Influenza Type B Ag Negative 10/10/18 10/11/18 10/11/18 18:08 05:55 05:55 WBC 5.5 RBC 3.31 L Hgb 11.1 L Hct 33.1 L MCV 100.0 H MCH 33.5 H MCHC 33.5 RDW 12.0 Plt Count 95 L MPV 9.7 Neutrophils % 84.0 H Band Neutrophils % 1.0 Eosinophils % Not Reportable Basophils % Not Reportable Lymphocytes 10.0 L Monocytes 5.0 Platelet Estimate Decreased RBC Morphology Normal Sodium 130 L Potassium 3.5 Chloride 91 L Carbon Dioxide 28.0 Anion Gap 11.0 BUN 8 Creatinine 0.8 Estimated GFR > 60 POC Glucose 113 H Random Glucose 105 Calcium 8.2 L Magnesium Total Bilirubin 0.90 AST 161 H ALT 54 H Alkaline Phosphatase 77 Total Protein 5.3 L Albumin 3.1 L Globulin 2.2 Albumin/Globulin Ratio 1.4 Influenza Type A Ag Influenza Type B Ag 10/11/18 05:55 WBC RBC Hgb Hct MCV MCH MCHC RDW Plt Count MPV Neutrophils % Band Neutrophils % Eosinophils % Basophils % Lymphocytes Monocytes Platelet Estimate RBC Morphology Sodium Potassium Chloride Carbon Dioxide Anion Gap BUN Creatinine Estimated GFR POC Glucose Random Glucose Calcium Magnesium 1.5 L Total Bilirubin AST ALT Alkaline Phosphatase Total Protein Albumin Globulin Albumin/Globulin Ratio Influenza Type A Ag Influenza Type B Ag DVT/PE Assessment - Risk for VTE Risk for VTE: No Risk Level: High Risk Assessment Date: 10/09/18 Risk Assessment Time: 16:05 VTE Orders Placed or Will Be Placed: Yes - Active Medicaitons Current Medications: Current Medications Albuterol Sulfate (Albuterol Sulfate) 2.5 mg INH RESP.Q4H PRN PRN Reason: DIFFICULTY IN BREATHING Last Admin: 10/10/18 10:09 Dose: 2.5 mg Atorvastatin Calcium (Lipitor) 20 mg PO QHS [facility] Last Admin: 10/10/18 22:50 Dose: 20 mg Carvedilol (Coreg) 12.5 mg PO BID [facility] Last Admin: 10/11/18 10:34 Dose: 12.5 mg Clonidine HCl (Catapres) 0.1 mg PO BID [facility] Last Admin: 10/11/18 10:34 Dose: 0.1 mg Enoxaparin Sodium (Lovenox) 40 mg SQ DAILY [facility] Last Admin: 10/11/18 10:32 Dose: 40 mg Levofloxacin/Dextrose (Levaquin 500mg Ivpb) 500 mg in 100 mls @ 125 mls/hr IVPB Q24H [facility] Stop: 10/14/18 16:31 Last Infusion: 10/10/18 18:04 Dose: Infused Insulin Aspart (Novolog Flexpen) 1 unit SQ TIDINS [facility]; Protocol Last Admin: 10/11/18 08:39 Dose: Not Given Losartan Potassium (Cozaar) 50 mg PO DAILY [facility] Last Admin: 10/11/18 10:34 Dose: 50 mg Pantoprazole Sodium (Protonix) 40 mg PO QHS [facility] Last Admin: 10/10/18 22:50 Dose: 40 mg Pregabalin (Lyrica) 50 mg PO BID [facility] Last Admin: 10/11/18 10:34 Dose: 50 mg Vitamin D (Vitamin D3) 2,000 unit PO DAILY [facility] Last Admin: 10/11/18 10:34 Dose: 2,000 unit AMI Plan - Labs Result Diagrams: 10/11/18 05:55 10/11/18 05:55
[2018-10-11] MEDS: BREO (FLUTICASONE/VILANTEROL) 200MCG/25MCG INHALER INH SCH (11:34)
[2018-10-11] MEDS: LEVOFLOXACIN 500MG IVPB 500 MG/100 ML BAG IVPB SCH (16:43)
[2018-10-11] MEDS: PANTOPRAZOLE SODIUM 40 MG TABLET PO SCH (21:19)
[2018-10-11] MEDS: ATORVASTATIN 20 MG TABLET PO SCH (21:19)
[2018-10-12] MEDS: NOVOLOG FLEXPEN (INSULIN ASPART) 100 UNITS/ML SQ SCH (08:04)
[2018-10-12] MEDS: ENOXAPARIN 40 MG/0.4 ML SYR SQ SCH (09:24)
[2018-10-12] MEDS: CHOLECALCIFEROL 1,000 UNIT TABLET PO SCH (09:25)
[2018-10-12] MEDS: PREGABALIN 50 MG CAPSULE PO SCH (09:25)
[2018-10-12] MEDS: CLONIDINE HCL 0.1 MG TABLET PO SCH (09:25)
[2018-10-12] MEDS: LOSARTAN POTASSIUM 25 MG TABLET PO SCH (09:25)
[2018-10-12] MEDS: CARVEDILOL 12.5 MG TABLET PO SCH (09:25)
--- NOTE | 2018-10-12 09:49 | Discharge Summary ---
Providers Discharge Summary Date: 10/12/18 Date of admission: 10/09/18 13:59 Attending physician: SCOTT YOUSSEF Primary care physician: OSVALDO DEE D.O. Physical Exam - Vital Signs Vital Signs: Vital Signs - Last 24 Hrs Temp Pulse Pulse Pulse Resp BP Pulse Ox 10/12/18 08:25 78 20 10/12/18 08:00 98.2 F 76 16 157/95 98 10/11/18 21:26 98.4 F 72 18 163/100 98 10/11/18 21:00 69 18 10/11/18 15:41 97.8 F 78 81 24 124/82 97 10/11/18 11:36 82 20 97 - General General Appearance: Alert, Oriented x3, Cooperative, Mild distress Limitations: No limitations - Head Head exam: Atraumatic Head exam detail: negative: Abrasion, Contusion, Salvador's sign, Hematoma - Eye Eye exam: Normal appearance, PERRL - ENT ENT exam: Normal exam, Mucous membranes moist, Normal external ear exam, Normal orophraynx, TM's normal bilaterally - Neck Neck exam: Normal inspection, Full ROM. negative: Tenderness - Respiratory Respiratory exam: Normal lung sounds bilaterally. negative: Rhonchi, Wheezes - Cardiovascular Cardiovascular Exam: negative: Regular rate, Normal rhythm, Tachycardia Peripheral Pulses: 2+: Radial (R), Radial (L), Dorsalis Pedis (R), Dorsalis Pedis (L) - GI/Abdominal GI/Abdominal exam: Soft, Normal bowel sounds. negative: Guarding, Rigid, Tenderness - Rectal Rectal exam: Heme (-) stool. negative: Bloody stool, Fecal impaction, Hemorrhoids - Extremities Extremities exam: Full ROM. negative: Calf tenderness, Tenderness - Neurological Neurological exam: Alert, CN II-XII intact, Oriented X3 - Psychiatric Psychiatric exam: Normal affect, Normal mood - Skin Skin exam: Abrasion (to left knee - Bruising to right knee and hip. ) Hospitalization - Hospitalization Admission Diagnosis: Diarrhea with hyponatremia - Problem List/Discharge Diagnosis (1) COPD (chronic obstructive pulmonary disease) Current Visit: Yes Status: Acute Base Code: J44.9 - CHRONIC OBSTRUCTIVE PULMONARY DISEASE, UNSPECIFIED Comment: 10/12/18: - 50 pk /yr hx of smoking. - CXR: suggestive of chronic disease, right middle lobe infilitrate/ atelectasis. - Sats 84% RA on oxygen qualifier. Requires 2 liters NC oxygen at all times. - Albuterol nebs Q4H PRN, Breo ellipta daily, - PFTs as an outpatient. (2) Dyspnea Current Visit: Yes Status: Acute Base Code: R06.00 - DYSPNEA, UNSPECIFIED Comment: 10/12/18: - Due to COPD/RML infiltrate. - CXR suggestive of right middle lobe/tony infiltrate. Chronic lung changes consistent with COPD. - Requiring 2 liters nasal cannula oxygen to maintaine sats > 92%. Sats on room air < 88%. - Home oxygen qualifier completed: Resting room air Spo2 86%. - Albuterol nebs Q4H PRN, Breo Ellipta daily. Contining on Levaquin 750mg IV Q24H to PO for another 4 days. - PFT's once discharged and follow up with PCP. (3) Right middle lobe pulmonary infiltrate Current Visit: Yes Status: Acute Base Code: R91.8 - OTHER NONSPECIFIC ABNORMAL FINDING OF LUNG FIELD Comment: 10/12/18: - CXR: shows right middle lobe infiltrate or atelectasis. - Starting Levaquin 750mg IV Q24H - Oxygen to maintain sats > 92 % - Albuterol nebs Q4H PRN. Breo Ellipta QD (4) Diarrhea Current Visit: Yes Status: Acute Discharge Diagnosis: Diarrhea type: unspecified type Qualified Code(s): R19.7 - Diarrhea, unspecified Base Code: R19.7 - DIARRHEA, UNSPECIFIED Comment: 10/12/18: -resolved - DDx: infectious viral vs bacterial, medication induced. - Stool studies showing Campylobacter +, all others negative. Camplylobacter infections are self limiting and do not require abx treatment. The patient's symptoms have resolved since yesterday. (5) Alcohol abuse Current Visit: Yes Status: Acute Base Code: F10.10 - ALCOHOL ABUSE, UNCOMPLICATED Comment: 10/11/18: - 6-8 beers daily, liquor daily. - last drink approx 18 hours ago. - CIWA qshift - Cont to monitor daily for signs of withdrawal. (6) Hyponatremia Current Visit: Yes Status: Acute Base Code: E87.1 - HYPO-OSMOLALITY AND HYPONATREMIA Comment: 10/12/18: - Likely hypovolemic hypovolemia due to ongoing diarrhea. - Na 125 --> 128 --> 130 (7) Transaminasemia Current Visit: Yes Status: Acute Base Code: R74.0 - NONSPEC ELEV OF LEVELS OF TRANSAMNS & LACTIC ACID DEHYDRGNSE Comment: 10/12/18: - AST/ALT 331/68 --> 222/55--> 161/54 - Hx of Etoh abuse with cirrhotic liver. (8) Frequent falls Current Visit: Yes Status: Acute Base Code: R29.6 - REPEATED FALLS Comment : 10/12/18: - Due to diabetic neuropathy, weakness and Etoh use. - Fall precuations w/ bed alarm and assistance with ambulation. (9) Diabetes mellitus, type II Current Visit: Yes Status: Acute Base Code: E11.9 - TYPE 2 DIABETES MELLITUS WITHOUT COMPLICATIONS Comment: 10/12/18: - Insulin low dose sliding scale ordered. - Accuchecks TIDAC - ADA diet (10) HTN (hypertension) Current Visit: Yes Status: Acute Base Code: I10 - ESSENTIAL (PRIMARY) HYPERTENSION Comment: 10/12/18: - Resume home meds. (11) DVT prophylaxis Current Visit: Yes Status: Acute Base Code: [id number] - Comment: 10/12/18: - Lovenox 40mg SQ QD (12) Full code status Current Visit: Yes Status: Acute Base Code: Z78.9 - OTHER SPECIFIED HEALTH STATUS Comment: 10/12/18: - Pt is full code - Disposition Anticipate D/C home tomorrow. - Hospitalization Course Hospital Course: Mr. Koroma is a 73 y/o male with a one week history of 6-7 loose stools daily for the past 1 week. The patient says that he had diarrhea about 1 month ago which was attributed to his Metformin which was stopped and his symptoms resolved. But he again began having symptoms last week despite not starting any new medications or having change in diet. The patient reports generalized weakness and two falls at home during this period. He says that he has had falls before due to his diabetic neuropathy but this seems to have gotten worse with the abdominal symptoms. He denies abdominal pain, fevers, chills, recent sick contacts or travel. The patient says that he does drink alcohol, about 6 beers daily and mixed cocktails in the evening. He says that his last alcoholic beverage was yesterday evening. On arrival to [facility] ED the patient had another loose, non-bloody bowel movement and also desaturated significantly from a persistent cough he had. Chest xray is suspicious for a right tony lesion and he is noted to be in contact with a person with community acquired pneumonia. 10/10: The patient continued to mild diarrhea over night and complained of feeling unsteady while walking. Stool cultures were still pending and chest xray did report an area of the right middle lobe suspicious for pneumonia. The patient was started on IV Levaquin, requires 2 liters of nasal cannula oxygen as he continued to desaturate to less than 88% on room air at rest. his labs showed improved in kidney function and a down trend in his liver enzymes. 10/11: The patient's diarrhea had completely resolved, however stool cultures showed positive Campylobacter. The patient patient's oxygen status remained the same. Electrolytes remained trending down and stable. 10/12: He is much improved physically with improved ambulation. The patient had oxygen qualifier completed this morning and at rest he requires 2 liters nasal cannula oxygen to maintain sats > 88%. His saturations dropped to 84 % at rest. PCP: Dr. Howe Procedures: Imaging and X-Rays 10/09/18 10:19 ABDOMEN 2 VIEW [RAD] Stat 10/09/18 10:48 CHEST 2 VIEWS [RAD] Stat Cardiology Procedures 10/09/18 10:19 Radioactive Waste Disposal Dispatcher NOW EKG NOW Abnormal Labs: Abnormal Lab Results 10/09/18 10/09/18 10/09/18 Range/Units 10:10 10:10 12:02 RBC 3.82 L (4.40-5.70) M/uL Hgb 13.4 L (14.0-18.0) gm/dl Hct 37.6 L (42.0-52.0) % MCV 98.4 H (81-97) fl MCH 35.0 H (27-33) pg Plt Count 112 L (130-400) K/uL Neutrophils % (47-80) % Monocytes % 14.0 H (0-9) % Lymphocytes (16-45) % Monocytes (0-9) % Sodium 125 L (136-145) mmol/L Potassium (3.4-4.5) mmol/L Chloride 81 L (98-107) mmol/L Anion Gap 17.0 H (7-16) BUN 24 H (8-23) mg/dL Creatinine 1.8 H (0.7-1.2) mg/dL POC Glucose (70-110) mg/dL Random Glucose (74-109) mg/dL Calcium (8.8-10.2) mg/dL Magnesium 1.5 L (1.6-2.4) mg/dL Total Bilirubin 1.60 H (0.2-1.0) mg/dL AST 331 H (10.0-50.0) U/L ALT 68 H (<41) U/L Total Protein (6.6-8.7) g/dL Albumin (4.0-5.0) g/dL Urine Protein (NEGATIVE) Urine Ketones (NEGATIVE) Urine Blood (NEGATIVE) 10/09/18 10/09/18 10/10/18 Range/Units 15:00 18:10 06:17 RBC 3.27 L (4.40-5.70) M/uL Hgb 11.5 L (14.0-18.0) gm/dl Hct 32.2 L (42.0-52.0) % MCV 98.5 H (81-97) fl MCH 35.1 H (27-33) pg Plt Count 88 L (130-400) K/uL Neutrophils % (47-80) % Monocytes % (0-9) % Lymphocytes 14.0 L (16-45) % Monocytes 10.0 H (0-9) % Sodium (136-145) mmol/L Potassium (3.4-4.5) mmol/L Chloride (98-107) mmol/L Anion Gap (7-16) BUN (8-23) mg/dL Creatinine (0.7-1.2) mg/dL POC Glucose 143 H (70-110) mg/dL Random Glucose (74-109) mg/dL Calcium (8.8-10.2) mg/dL Magnesium (1.6-2.4) mg/dL Total Bilirubin (0.2-1.0) mg/dL AST (10.0-50.0) U/L ALT (<41) U/L Total Protein (6.6-8.7) g/dL Albumin (4.0-5.0) g/dL Urine Protein 30 mg/dl H (NEGATIVE) Urine Ketones Trace H (NEGATIVE) Urine Blood Large H (NEGATIVE) 10/10/18 10/10/18 10/10/18 Range/Units 06:17 13:00 15:09 RBC (4.40-5.70) M/uL Hgb (14.0-18.0) gm/dl Hct (42.0-52.0) % MCV (81-97) fl MCH (27-33) pg Plt Count (130-400) K/uL Neutrophils % (47-80) % Monocytes % (0-9) % Lymphocytes (16-45) % Monocytes (0-9) % Sodium 128 L (136-145) mmol/L Potassium 3.2 L (3.4-4.5) mmol/L Chloride 90 L (98-107) mmol/L Anion Gap (7-16) BUN (8-23) mg/dL Creatinine (0.7-1.2) mg/dL POC Glucose 164 H (70-110) mg/dL Random Glucose 111 H (74-109) mg/dL Calcium 8.0 L (8.8-10.2) mg/dL Magnesium 1.4 L (1.6-2.4) mg/dL Total Bilirubin (0.2-1.0) mg/dL AST 222 H (10.0-50.0) U/L ALT 55 H (<41) U/L Total Protein 5.5 L (6.6-8.7) g/dL Albumin 3.2 L (4.0-5.0) g/dL Urine Protein (NEGATIVE) Urine Ketones (NEGATIVE) Urine Blood (NEGATIVE) 10/10/18 10/11/18 10/11/18 Range/Units 18:08 05:55 05:55 RBC 3.31 L (4.40-5.70) M/uL Hgb 11.1 L (14.0-18.0) gm/dl Hct 33.1 L (42.0-52.0) % MCV 100.0 H (81-97) fl MCH 33.5 H (27-33) pg Plt Count 95 L (130-400) K/uL Neutrophils % 84.0 H (47-80) % Monocytes % (0-9) % Lymphocytes 10.0 L (16-45) % Monocytes (0-9) % Sodium 130 L (136-145) mmol/L Potassium (3.4-4.5) mmol/L Chloride 91 L (98-107) mmol/L Anion Gap (7-16) BUN (8-23) mg/dL Creatinine (0.7-1.2) mg/dL POC Glucose 113 H (70-110) mg/dL Random Glucose (74-109) mg/dL Calcium 8.2 L (8.8-10.2) mg/dL Magnesium (1.6-2.4) mg/dL Total Bilirubin (0.2-1.0) mg/dL AST 161 H (10.0-50.0) U/L ALT 54 H (<41) U/L Total Protein 5.3 L (6.6-8.7) g/dL Albumin 3.1 L (4.0-5.0) g/dL Urine Protein (NEGATIVE) Urine Ketones (NEGATIVE) Urine Blood (NEGATIVE) 10/11/18 10/11/18 Range/Units 05:55 11:45 RBC (4.40-5.70) M/uL Hgb (14.0-18.0) gm/dl Hct (42.0-52.0) % MCV (81-97) fl MCH (27-33) pg Plt Count (130-400) K/uL Neutrophils % (47-80) % Monocytes % (0-9) % Lymphocytes (16-45) % Monocytes (0-9) % Sodium (136-145) mmol/L Potassium (3.4-4.5) mmol/L Chloride (98-107) mmol/L Anion Gap (7-16) BUN (8-23) mg/dL Creatinine (0.7-1.2) mg/dL POC Glucose 219 H (70-110) mg/dL Random Glucose (74-109) mg/dL Calcium (8.8-10.2) mg/dL Magnesium 1.5 L (1.6-2.4) mg/dL Total Bilirubin (0.2-1.0) mg/dL AST (10.0-50.0) U/L ALT (<41) U/L Total Protein (6.6-8.7) g/dL Albumin (4.0-5.0) g/dL Urine Protein (NEGATIVE) Urine Ketones (NEGATIVE) Urine Blood (NEGATIVE) Condition at Discharge: (3) Guarded Discharge Medications - Discharge Medications Prescriptions: Fluticasone/Vilanterol 200/25 [Breo Ellipta 200-25 Mcg INH] 1 puff INH DAILY #1 inhaler Levofloxacin [Levaquin] 750 mg PO DAILY 4 Days #4 tab Home Medications: Ambulatory Orders Clonidine HCl [Catapres ER] 0.1 mg PO BID #14 tab 12/23/14 [Last Taken Unknown] Omeprazole [Prilosec] 20 mg PO DAILY 12/23/14 [Last Taken 12/23/14] Atorvastatin Calcium 20 mg PO QHS 10/09/18 [Last Taken Unknown] Carvedilol [Coreg] 3.125 mg PO BID 10/09/18 [Last Taken Unknown] Cholecalciferol (Vitamin D3) [Vitamin D3] 2,000 unit SQ DAILY 10/09/18 [Last Taken Unknown] Diphenhydramine HCl [Benadryl] 25 mg PO DAILY 10/09/18 [Last Taken Unknown] Losartan Potassium 25 mg PO DAILY 10/09/18 [Last Taken Unknown] Pregabalin [Lyrica] 25 mg PO BID 10/09/18 [Last Taken Unknown] Fluticasone/Vilanterol 200/25 [Breo Ellipta 200-25 Mcg INH] 1 puff INH DAILY #1 inhaler 10/12/18 [Last Taken Unknown] Levofloxacin [Levaquin] 750 mg PO DAILY 4 Days #4 tab 10/12/18 [Last Taken Unknown] Discharge Plan - Discharge Instructions Activity at Discharge: Wear Oxygen At All Times Diet at Discharge: Regular Diet Additional Instructions: Continue to take Levaquin 750mg once daily for another 4 days. Please sure to complete the antibiotic course. Wear your oxygen at all times ensuring that it is turned to 2 liters. Use Breo Ellipta once daily. You will have another 10 doses left in the inhaler provided. Follow up with your PCP Dr. Howe in 3-5 days for further instructions and management. Quality Measures - Quality Measures Quality Measures: Advance Directives, Documentation of Current Medications in Medical Record, Elder Maltreatment Screen and Follow-Up Plan, Screening for High Blood Pressure and F/U Documented - Current Medications Quality Measure: Measure #130: Documentation of Current Medications Documentation of Current Medications: <Current Medications Documented/Reviewed> [F5152] - Blood Pressure Screening Quality Measure: Screening for High Blood Pressure and Follow-Up Documented Does Patient Have Any of the Following: Active Dx of HTN Blood Pressure Classification: Normal BP Reading Systolic Measurement: 114 Diastolic Measurement: 75 Screening for High Blood Pressure: Patient Exclusion, Hx of HTN [G9744] - Advance Directives Quality Measure: Measure #47: Care Plan Advance Directives Established: No Advance Directives Information Provided To Patient: No Advance Directives on File: No Living Will: Yes Power of Story Analyst: Yes Power of Story Analyst Name: Di Koroma Advance Care Planning: <Care Plan/Decision Maker Documented; Discussed & Documented> [7403F] - Elder Abuse Suspicion Index Screening: Elder Abuse Suspicion Index Screening Rely on people for bathing, dressing, shopping, banking, etc: No Prevented from getting food, clothes, medication, etc: No Made to feel shamed or threatened by someone: No Forced to sign papers or use money against will: No Feel afraid, touched in ways not wanted or hurt physically: No Poor eye contact, withdrawn, malnourished, cuts or bruises: No Screening Result: Negative result EASI Reference Information: Carlos WRAY, Yamile C, Mason D, Ysabel M.Development and validation of a tool to assist physicians identification of elder abuse: The Elder Abuse Suspicion Index (EASI ). Journal of Elder Abuse and Neglect, 2008; 20 (3): 276-300. - Elder Maltreatment Screen Quality Measures: Elder Maltreatment Screen and Follow-Up Plan Elder Maltreatment Screen: <Negative, No Follow-Up Plan Required> [S5784]
[2018-10-12] MEDS: BREO (FLUTICASONE/VILANTEROL) 200MCG/25MCG INHALER INH SCH (10:20)
== END 2018-10-12 11:00 | disposition home health service (06) | DRG 897 ==
LOC: ER 10:06 → MEDSURG 13:59
PROVIDERS: ADMIT Internal Medicine; ATTEND Internal Medicine
DX: F10.10 Alcohol abuse, uncomplicated (principal); E87.1 Hypo-osmolality and hyponatremia; J44.9 Chronic obstructive pulmonary disease, unspecified; R06.00 Dyspnea, unspecified; N28.9 Disorder of kidney and ureter, unspecified; I10 Essential (primary) hypertension; R74.0 Nonspecific elevation of levels of transaminase and lactic acid dehydrogenase [LDH]; R91.8 Other nonspecific abnormal finding of lung field; R29.6 Repeated falls; E11.9 Type 2 diabetes mellitus without complications; E78.00 Pure hypercholesterolemia, unspecified; R05 Cough; F17.210 Nicotine dependence, cigarettes, uncomplicated
CPT/HCPCS: 83735; 85025; 80053; 74019; 71046; 93005; 93010; G0480; 36416; 80320; 81001; 82272; 82607; 82948; 84132; 85027; 87400; 87427; 87493; 94618; 94640; 94760; 96365; 99223; 99233; 99239; 99285; J1650; J1956; J7613

== ENCOUNTER 2019-04-30 11:48 | Day surgery (SDC) | payer MEDICARE, OTHER ==
[2019-04-30] MEDS ORDERED: EPHEDRINE SULFATE 50 MG/ML ML IV ONE (11:49)
[2019-04-30] MEDS ORDERED: PROPOFOL 10 MG/ML VIAL IV ONE (11:49)
[2019-04-30] MEDS ORDERED: LIDOCAINE 2% MDV (20MG/ML) 20ML VIAL IV ONE (11:49)
--- NOTE | 2019-05-01 13:10 | Operative Note ---
OPERATION: COLONOSCOPY with multiple cold snare polypectomies and hemoclip application x3 to polypectomy sites. PREOPERATIVE DIAGNOSIS: Surveillance for colon polyps, history of polyps. POSTOPERATIVE DIAGNOSES: 1. Severe left-sided diverticulosis. 2. Nine ascending colon polyps. 3. Three transverse colon polyps. PREPARATION QUALITY: Fair to good. ESTIMATED BLOOD LOSS: Minimum. SPECIMENS: Ascending colon polyps x9, transverse colon polyps x3. COMPLICATIONS: None apparent. PROCEDURE: After informed consent was obtained from the patient, he was placed in the left lateral decubitus position in the endoscopy suite, sedated and monitored by the department of anesthesia. Digital rectal exam was unremarkable. A well-lubricated [id number] colonoscope was inserted into the rectum and advanced to the cecum. There was severe sigmoid diverticular and left colonic diverticular changes noted. Transabdominal pressure was required to intubate the cecum. The preparation quality was fair to good. The cecum and cecal bulb were unremarkable. The ascending colon revealed 9 sessile polyps ranging in size from 5-8 mm all removed with a cold snare. Two of the sites were clipped with hemoclip; one x2 and the other x1. Specimens were retrieved. There was no persistent bleeding noted. The transverse colon revealed 3 polyps ranging in some from 5-7 mm all removed with a cold snare and retrieved. The remainder of the transverse colon was unrevealing. The descending colon and sigmoid colon demonstrated severe diverticular changes with no polyps. There were patchy erythematous changes associated with diverticula. The rectum was unremarkable in forward and J-turn views. The endoscope was straightened, the rectal ampulla deflated, and the endoscope was removed. RECOMMENDATIONS: The patient should follow a soft, low-fiber diet for the next 2 weeks and a high-fiber diet thereafter. We will await results of tissue histology but suspect a 1-year followup would be recommended based on the extreme number of polyp noted. As always, thank you for allowing me to participate in the healthcare of your patients. STEPHANIE
== END 2019-04-30 13:35 | disposition home or self-care (01) ==
LOC: HOP 11:48
PROVIDERS: ATTEND Internal Medicine Gastroenterology
DX: D64.9 Anemia, unspecified (principal); R19.5 Other fecal abnormalities; Z86.010 Personal history of colon polyps; D12.2 Benign neoplasm of ascending colon; D12.3 Benign neoplasm of transverse colon; K57.30 Diverticulosis of large intestine without perforation or abscess without bleeding; I10 Essential (primary) hypertension; E78.00 Pure hypercholesterolemia, unspecified; K21.9 Gastro-esophageal reflux disease without esophagitis

== ENCOUNTER 2019-08-13 11:28 | Observation (INO) | payer MEDICARE, OTHER ==
[2019-08-13] MEDS ORDERED: METHYLPREDNISOLONE PF 125MG/VIAL IVP ONE (11:49)
[2019-08-13] MEDS ORDERED: IPRATROPIUM/ALBUTEROL (0.5MG/3MG) NEB INH ONE (11:49)
--- NOTE | 2019-08-13 11:51 | Emergency Department Record ---
History of Present Illness - General Chief Complaint: Shortness of breath Stated Complaint: GEETA Time Seen by Provider: 08/13/19 11:38 Source: Patient Mode of Arrival: EMS Limitations: No limitations - History of Present Illness Initial Comments: The patient is here due to being SOB for almost a week. He has had a chronic cough which is roughly the same but his breathing did get worse this morning. The patient states he fell last night onto his R chest and shoulder and since has been having worsening anterior chest pain. The pain is sharp and stabbing and worse with any deep breathing or movement. There has been no reported fever, chills, AP, or ARIZA. The patient did not hit his head and denies any neck pain after the fall. He does have a hx of COPD and does normally have a low biox on RA. The patient was found by EMS an hour ago with a low biox in the 70's and did receive an albuterol tx on the way into the hospital. MD Complaint: Shortness of breath Onset/Timin -: Days(s) Severity: Severe Severity scale (1-10): 9 Quality: Sharp Consistency: Constant Improves With: Nothing Worsens With: Inspiration Known History Of: COPD, Diabetes Associated Symptoms: Chest pain Treatments Prior to Arrival: None - Related Data Home Medications Medication Instructions Recorded Confirmed Last Taken Fluticasone Propion/Salmeterol 1 puff IH DAILY 08/13/19 08/13/19 Unknown [Advair 250-50 Diskus] Temazepam [Restoril] 30 mg PO QHS 08/13/19 08/13/19 Unknown Previous Rx's Medication Instructions Recorded Clonidine HCl [Catapres ER] 0.1 mg PO BID #14 tab 12/23/14 Fluticasone/Vilanterol 200/25 1 puff INH DAILY #1 inhaler 10/12/18 [Breo Ellipta 200-25 Mcg INH] Allergies Allergy/AdvReac Type Severity Reaction Status Date / Time cephalexin monohydrate Allergy HIVES Verified 12/23/14 17:40 [From Keflex] enalapril Allergy PT UNSURE Verified 10/09/18 10:56 OF REACTION Travel Screening - Travel/Exposure Within Last 30 Days Have you traveled within the last 30 days?: No Review of Systems Constitutional: Reports: Malaise. Denies: Chills, Fever Eyes: Denies: Eye discharge ENT: Reports: Congestion Respiratory: Reports: Cough, Dyspnea. Denies: Hemoptysis Cardiovascular: Reports: Chest pain. Denies: Arrhythmia Endocrine: Denies: Fatigue Gastrointestinal: Denies: Nausea Genitourinary: Denies: Dysuria Musculoskeletal: Denies: Arthralgia Skin: Denies: Bruising Past Medical History - SOCIAL HISTORY Smoking Status: Light tobacco smoker (<10/day) - RESPIRATORY Hx Respiratory Disorders: Yes Hx Bronchitis: Yes Hx COPD: Yes Hx Dyspnea: Yes - CARDIOVASCULAR Hx Cardio Disorders: Yes Hx Hypertension: Yes Comment:: High cholesterol - NEURO Hx Neuro Disorders: Yes Hx Neuropathy: Yes - GI Hx GI Disorders: Yes Hx GI Bleed: Yes Hx Reflux: Yes Hx of Polyps: Yes - Hx Genitourinary Disorders: Yes Hx UTI: Yes - ENDOCRINE Hx Endocrine Disorders: Yes Hx Diabetes: Yes (hx, not currently taking any medications) - MUSCULOSKELETAL Hx Musculoskeletal Disorders: Yes Hx Arthritis: Yes - PSYCH Hx Psych Problems: No - HEMATOLOGY/ONCOLOGY Hx Hematology/Oncology Disorders: Yes Hx Anemia: Yes Hx Cancer: Yes (throat) Hx Chemotherapy: No Hx Radiation Therapy: No Family Medical History Any Significant Family History?: Yes Hx Alcohol Use: Father, Mother, Brother/Sister, Grandparents Hx Heart Disease: Mother Hx HTN: Mother, Brother/Sister Physical Exam - General General Appearance: Alert, Oriented x3, Cooperative, No acute distress - Head Head exam: Atraumatic, Normocephalic, Normal inspection - Eye Eye exam: Normal appearance, PERRL, EOMI - ENT Throat exam: Normal inspection. negative: Tonsillar erythema, Tonsillar exudate - Neck Neck exam: Normal inspection, Full ROM. negative: Tenderness - Respiratory Respiratory exam: Decreased breath sounds, Wheezes (at the bases.). negative: Normal lung sounds bilaterally, Accessory muscle use, Rales, Respiratory distress, Rhonchi - Cardiovascular Cardiovascular Exam: Regular rate, Normal rhythm, Normal heart sounds. negative: Diastolic murmur, Systolic murmur - GI/Abdominal GI/Abdominal exam: Soft, Normal bowel sounds. negative: Tenderness - Extremities Extremities exam: Normal inspection, Full ROM, Normal capillary refill. negative: Calf tenderness, Pedal edema, Tenderness - Back Back exam: Reports: Normal inspection - Neurological Neurological exam: Alert, Normal gait. negative: Abnormal gait, Motor sensory deficit - Psychiatric Psychiatric exam: negative: Anxious Course Vital Signs 08/13/19 08/13/19 11:42 11:58 Temperature 98.6 F Pulse Rate 96 H Respiratory 22 Rate Blood Pressure 165/87 Pulse Ox 97 - Reevaluation(s) Reevaluation #1: The patient is breathing better after the Neb tx's and IV steroids. I did discuss the lab results and CT with the patient and family and did discuss the need to stay in the hospital for the COPD exacerbation and hyponatremia. I also did discuss the nodule on CT that needs close F/U with Dr. Avalos and the patient's assures she will bring the CT report to the next appointment. I then did discuss the case with Dr. Campbell and he does agree with the plan for a full admit. 08/13/19 12:58 Medical Decision Making - Data Complexity MDM Data: Labs Ordered and/or Reviewed, X-Ray Ordered and/or Reviewed, EKG Ordered and/or Reviewed - Lab Data Result diagrams: 08/13/19 11:40 08/13/19 11:40 - EKG Data -: EKG Interpreted by Me EKG: No Acute Changes, Normal EKG - Radiology Data Radiology results: Report reviewed (Chest CT: Neg for rib fx or pneumonia. Positive RUL nodule, needs F/U. Family and patient aware and given CT report for Dr. Avalos.) Disposition Disposition: Admit Clinical Impression: Hyponatremia COPD (chronic obstructive pulmonary disease) Qualifiers: COPD type: unspecified COPD Qualified Code(s): J44.9 - Chronic obstructive pulmonary disease, unspecified Disposition: Still a Patient at [facility] Decision to Admit: Admit from ER Decision to Admit Date: 08/13/19 Decision to Admit Time: 13:01 Accepting Physician: Shannan Time Discussed w/Accepting Physician: 13:01 Condition: (2) Stable Forms: Patient Portal Access Time of Disposition: 13:01 Quality - Quality Measures Quality Measures: N/A - Blood Pressure Screening View Details: Yes Does Patient Have Any of the Following: No Blood Pressure Classification: Pre-Hypertensive BP Reading Systolic Measurement: 165 Diastolic Measurement: 87 Screening for High Blood Pressure: < Pre-Hypertensive BP, F/U Documented > [G8950] Pre-Hypertensive Follow-up Interventions: Referral to alternative/primary care provider.
[2019-08-13] MEDS ORDERED: ACETAMINOPHEN 1,000 MG/100 ML BTL IVPB ONE (11:52)
[2019-08-13 11:59] LABS: ABSOLUTE NEUTROPHIL COUNT 8.97; HEMATOCRIT 35.6 % (42.0-52.0); HEMOGLOBIN 12.1 gm/dl (14.0-18.0); MEAN CELL VOLUME 99.7 fl (81-97); MEAN PLATELET VOLUME 9.8 fl (7.4-10.4); PLATELET COUNT 125 K/uL (130-400); RED BLOOD COUNT 3.57 M/uL (4.40-5.70); RED CELL DISTRIBUTION WIDTH 13.3 % (11.5-14.5); WHITE BLOOD COUNT W/O DIFF 10.6 K/uL (4.2-12.2)
[2019-08-13 12:04] LABS: MEAN CORPUSCULAR HEMOGLOBIN 33.8 pg (27-33)
[2019-08-13 12:13] LABS: BLOOD UREA NITROGEN 8 mg/dL (8-23); CREATININE 0.8 mg/dL (0.7-1.2); EST GLOMERULAR FILTRATION RATE > 60 mL/min; TOTAL PROTEIN 7.3 g/dL (6.6-8.7)
[2019-08-13 12:15] LABS: GLUCOSE,RANDOM 115 mg/dL (74-109)
[2019-08-13 12:18] LABS: ALB/GLOB RATIO 1.6 (1.1-1.8); ALBUMIN 4.5 g/dL (4.0-5.0); ALKALINE PHOSPHATASE 105 U/L (40-129); ALT/SGPT 14 U/L (<41); AST/SGOT 25 U/L (10.0-50.0)
[2019-08-13 12:34] LABS: C-REACTIVE PROTEIN 0.85 mg/dL (<0.5)
--- NOTE | 2019-08-13 12:45 | CT SCAN REPORT ---
EXAMINATION: CT Chest without IV Contrast EXAM DATE: 08/13/2019 12:31 PM TECHNIQUE: Standard protocol CT images of the chest were performed without intravenous contrast. Lac k of intravenous contrast does limit assessment of the vascular structures and soft tissues. Coronal and sagittal images were reconstructed. INDICATION: Anterior CP S/P fall. COMPARISON: None ENCOUNTER: Not applicable CHEST FINDINGS: Base of Neck & Axillae: There is no adenopathy. Mediastinum & Katarina: There is no mediastinal or hilar adenopathy. Large hiatal hernia. Cardiovascular: Heart is normal in size. There is a small pericardial effusion. Fairly severe coronar y atherosclerosis is noted. The thoracic aorta and main pulmonary artery have a normal caliber. Tracheobronchial Structures: There is no focal lung consolidation suspicious for pneumonia. Mild pulm onary emphysema is noted. There is subsegmental atelectasis within both lung bases and a 2 cm groundg lass opacity within the superior segment of the right lower lobe. Lung Parenchyma: Mild scattered small airways thickening. Pleural Space: There are no pleural effusions. There is no pneumothorax. Upper Abdomen: Cholelithiasis and severe atherosclerosis. Chest Wall & Musculoskeletal: No suspicious bone lesions. No evidence of acute rib, sternum, or thora cic spine fracture. A mild compression fracture of T11 appears chronic. 3-D Imaging at an Independent Workstation: Not performed. Assessment of the soft tissues and vascular structures is overall limited on noncontrast imaging, IMPRESSION: 1. No evidence of rib or other acute fracture within the chest. 2. 2 cm groundglass nodule within the superior segment of the right lower lobe, nonspecific. Chest CT follow-up is recommended in 3 months to ensure stability. 3. Severe atherosclerosis. Dictated by: Bogdan Narayan MD on 08/13/2019 12:34 PM. .
[2019-08-13] MEDS ORDERED: ACETAMINOPHEN 325 MG TAB PO PRN (13:42)
[2019-08-13] MEDS: IPRATROPIUM/ALBUTEROL (0.5MG/3MG) NEB INH SCH ×3 (14:18→22:06)
[2019-08-13] MEDS ORDERED: 0.9 % SODIUM CHLORIDE 1000ML 1,000 ML IV PRN (16:29)
[2019-08-13] MEDS ORDERED: KETOROLAC 30 MG/ML VIAL IVP PRN (17:53)
[2019-08-13] MEDS: ENOXAPARIN 40 MG/0.4 ML SYR SQ SCH (18:14)
[2019-08-13] MEDS: 0.9 % SODIUM CHLORIDE 1000ML 1,000 ML IV ONE (18:17)
[2019-08-13] MEDS ORDERED: ATORVASTATIN 20 MG TABLET PO SCH (20:00)
[2019-08-13] MEDS ORDERED: PANTOPRAZOLE SODIUM 40 MG TABLET PO SCH (20:00)
[2019-08-13] MEDS: PREGABALIN 50 MG CAPSULE PO SCH (20:20)
[2019-08-13] MEDS: CARVEDILOL 12.5 MG TABLET PO SCH (20:20)
[2019-08-13] MEDS: CLONIDINE HCL 0.1 MG TABLET PO SCH (20:20)
--- NOTE | 2019-08-13 21:24 | CT ANGIOGRAM REPORT ---
EXAMINATION: CT Angiography of the Thorax EXAM DATE: 08/13/2019 9:15 PM TECHNIQUE: Standard protocol CT angiogram images were obtained through the chest following the admini stration of intravenous contrast. Coronal and sagittal MIP 3-D reformations were performed. IV Contrast: The amount and type of contrast are recorded in the medical record. INDICATION: Elevated D.Dimer. COMPARISON: CT thorax without contrast 08/13/2019 at 12:13 PM ENCOUNTER: Not applicable FINDINGS: Pulmonary Artery: No pulmonary embolism is present. There is some motion artifact which interferes wi th evaluation of the lower lobes. Aorta: No thoracic aortic aneurysm or dissection is present. Heart : Cardiac chambers have normal size. Pericardial effusion has decreased since exam earlier in . Katarina and Mediastinum: No lymphadenopathy. Lung Parenchyma: Lung volumes are decreased with bibasilar compressive atelectasis.. Central Airways: Normal. Pleural Effusion: None. Upper Abdomen: Moderate size hiatal hernia. Several small gallstones are present. No pericholecystic edema.. Musculoskeletal and Chest Wall: Unremarkable. IMPRESSION: No evidence of pulmonary embolism. Moderate size hiatal hernia. Cholelithiasis. Dictated by: Cleo Lucero MD on 08/13/2019 9:19 PM. .
[2019-08-13] MEDS ORDERED: TEMAZEPAM 15 MG CAPSULE PO SCH (22:00)
[2019-08-14] MEDS: IPRATROPIUM/ALBUTEROL (0.5MG/3MG) NEB INH SCH ×2 (06:10→10:09)
[2019-08-14 06:31] LABS: ABSOLUTE NEUTROPHIL COUNT 10.67; BASO % 0.1 % (0-6); HEMATOCRIT 32.8 % (42.0-52.0); HEMOGLOBIN 10.9 gm/dl (14.0-18.0); LYMPH % 5.5 % (16-45); MEAN CELL VOLUME 100.6 fl (81-97); MEAN CORPUSCULAR HEMOGLOBIN 33.4 pg (27-33); MEAN CORPUSCULAR HGB CONC 33.2 g/dl (32-36); MEAN PLATELET VOLUME 9.6 fl (7.4-10.4); MONO % 4.9 % (0-9); PLATELET COUNT 90 K/uL (130-400); RED BLOOD COUNT 3.26 M/uL (4.40-5.70); RED CELL DISTRIBUTION WIDTH 13.4 % (11.5-14.5); WHITE BLOOD COUNT W/O DIFF 11.9 K/uL (4.2-12.2)
[2019-08-14 06:57] LABS: ALB/GLOB RATIO 1.5 (1.1-1.8); ALKALINE PHOSPHATASE 85 U/L (40-129); ALT/SGPT 18 U/L (<41); AST/SGOT 27 U/L (10.0-50.0); BLOOD UREA NITROGEN 14 mg/dL (8-23); EST GLOMERULAR FILTRATION RATE > 60 mL/min; GLUCOSE,RANDOM 182 mg/dL (74-109); TOTAL PROTEIN 6.7 g/dL (6.6-8.7)
[2019-08-14 06:59] LABS: PLATELET ESTIMATE DECREASED (NORMAL)
[2019-08-14] MEDS: CARVEDILOL 12.5 MG TABLET PO SCH (08:08)
[2019-08-14] MEDS: CLONIDINE HCL 0.1 MG TABLET PO SCH (08:08)
[2019-08-14] MEDS: PREGABALIN 50 MG CAPSULE PO SCH (08:09)
[2019-08-14] MEDS ORDERED: METHYLPREDNISOLONE PF 125MG/VIAL IVP SCH (10:00)
[2019-08-14] MEDS ORDERED: SALMETEROL IH SCH (10:00)
[2019-08-14] MEDS ORDERED: BREO (FLUTICASONE/VILANTEROL) 200MCG/25MCG INHALER INH SCH (10:00)
[2019-08-14] MEDS ORDERED: FLUTICASONE PROPION IH SCH (10:00)
[2019-08-14] MEDS: 0.9 % SODIUM CHLORIDE 1000ML 1,000 ML IV ONE (10:35)
[2019-08-14] MEDS: ENOXAPARIN 40 MG/0.4 ML SYR SQ SCH (10:37)
--- NOTE | 2019-08-14 10:40 | History and Physical Report ---
DATE: CHIEF COMPLAINT: Fell yesterday. Had chest pain, shortness of breath. Came into the emergency department for evaluation. He was evaluated by Dr. Holly who felt he had chest wall contusion. CT scan of his chest was negative for fractures or any abnormalities without contrast. EKG showing sinus rhythm. No acute changes. Troponin was negative. The patient did have a low sodium which he has had before. He does drink 4-6 beers a day. He was short of breath. He smokes 4-5 cigarettes a day. He started at 7 years of age smoking and smoked up to 1 pack a day for 50 years. The pain is reproducible on palpation of the chest. He does not use oxygen at home. He does have COPD. PAST MEDICAL HISTORY: COPD, hypertension, neuropathy of the legs, GERD, hypercholesterolemia, diabetes, not currently taking any medications for his diabetes, arthritis, throat cancer, anemia. PAST SURGICAL HISTORY: Hernia repair, throat surgery for removal of cancer of his throat, right knee scope. MEDICATIONS: 1. Restoril 30 mg at night. 2. Clonidine 0.1 mg b.i.d. 3. Advair 250/50 one puff b.i.d. 4. Breo Ellipta 1 puff daily. 5. Carvedilol 12.5 b.i.d. 6. Atorvastatin 20 mg at bedtime. 7. Lyrica 50 mg b.i.d. 8. Omeprazole 20 mg daily. ALLERGIES: KEFLEX, ENALAPRIL. SOCIAL HISTORY: Smokes 4-5 cigarettes a day but started at 7 years of age and did smoke a pack a day for about 50 years. He drinks about 4-5 beers a day. FAMILY HISTORY: Alcohol use in father, mother, brother, sister, grandparents. Heart disease in mother. Hypertension in mother, brother, and sister. REVIEW OF SYSTEMS: HEENT: No upper respiratory infection symptoms, cough, cold, or congestion. He does have a chronic morning cough from the smoking. Cardiovascular: Chest pain is reproducible on palpation anterior chest wall. Respiratory: He says he is short of breath but he is breathing fine at his baseline at this point. Does not use home oxygen. Sleep History: No sleep apnea. Gastrointestinal: No nausea, vomiting, diarrhea, black stools, or bloody stools. Genitourinary: No dysuria, hematuria, frequency, or burning on urination. Musculoskeletal: He does have arthritis in his joints; knees, hips, and back. Moving to the bathroom with a walker and he uses a walker to get around. Neurological: No CVA, paralysis, or paresthesias. Endocrine: No diabetes or thyroid disease. Integument: No rash, ulcers, change in moles, or yellow skin. PHYSICAL EXAMINATION: VITALS: Height 5 feet 9 inches, weight 208 pounds. Temperature 98.1, pulse 81, blood pressure 161/91, respiratory rate 18, pulse ox is 94% on room air. HEENT: Pupils are equal, round, and reactive to light and accommodation. Extraocular muscles are intact. Throat is clear. Nose is clear. Tympanic membranes are frazier. NECK: Supple. No jugular venous distention. No hepatojugular reflux. No carotid bruits. Thyroid is smooth. CARDIOVASCULAR: Regular rate and rhythm without murmurs, clicks, rubs, or gallops. Pain on palpation of the ribs anteriorly bilaterally over the sternum. RESPIRATORY: Decreased breath sounds bilaterally. ABDOMEN: Soft, nontender. No hepatosplenomegaly, no masses, no tenderness. Bowel sounds are active. No bruits. EXTREMITIES: No pitting edema. No cyanosis, no clubbing. Full range of motion. Peripheral pulses are good. BREASTS: Normal male breasts. RECTAL: Deferred. GENITALIA: Deferred. NEUROLOGIC: Cranial nerves II-XII intact. No gross defects. Sensation normal, strength normal. Deep tendon reflexes equal bilaterally with Babinski negative. MENTAL STATUS: Alert and oriented x3. IMPRESSION: 1. Chest wall contusion. 2. Chronic obstructive pulmonary disease. 3. Gastroesophageal reflux disease. 4. Hypertension. 5. Hyponatremia. PLAN: We will switch him back to a regular diet. Normal saline cautiously because he could get overloaded easily with fluid, 50 mL/hour of normal saline. We will check his electrolytes again in the morning. We will get a D-dimer and a second troponin here shortly. Toradol IV 50 mg q.8 h. MTDD
--- NOTE | 2019-08-14 12:47 | Discharge Note ---
VTE H&P Assessment - Risk for VTE Risk for VTE: Yes Risk Level: Moderate Risk Assessment Date: 08/13/19 Risk Assessment Time: 13:00 VTE Orders Placed or Will Be Placed: Yes Discharge Medications - Discharge Medications Prescriptions: Doxycycline Hyclate 100 mg PO BID #20 cap Prednisone [Prednisone 20Mg] 20 mg PO BID #10 tab Albuterol Sulfate [Proair Hfa] 1 - 2 puff IH .EVERY 4-6 HOURS PRN #1 inhaler PRN Reason: Difficulty In Breathing Home Medications: Ambulatory Orders Clonidine HCl [Catapres ER] 0.1 mg PO BID #14 tab 12/23/14 [Last Taken Unknown] Omeprazole [Prilosec] 20 mg PO DAILY 12/23/14 [Last Taken 12/23/14] Atorvastatin Calcium 20 mg PO QHS 10/09/18 [Last Taken Unknown] Carvedilol [Coreg] 12.5 mg PO BID 10/09/18 [Last Taken Unknown] Pregabalin [Lyrica] 50 mg PO BID 10/09/18 [Last Taken Unknown] Fluticasone Propion/Salmeterol [Advair 250-50 Diskus] 1 puff IH DAILY 08/13/19 [Last Taken Unknown] Temazepam [Restoril] 30 mg PO QHS 08/13/19 [Last Taken Unknown] Acetaminophen [Tylenol 325Mg] 650 mg PO Q6H PRN tablet 08/14/19 [Last Taken Unknown] Albuterol Sulfate [Proair Hfa] 1 - 2 puff IH .EVERY 4-6 HOURS PRN #1 inhaler 08/14/19 [Last Taken Unknown] Doxycycline Hyclate 100 mg PO BID #20 cap 08/14/19 [Last Taken Unknown] Prednisone [Prednisone 20Mg] 20 mg PO BID #10 tab 08/14/19 [Last Taken Unknown] Discharge Note - Date Date of Discharge Note: 08/14/19 Disposition: Home, Self-Care Condition: (2) Stable Additional Instructions: follow up with Dr. Avalos in 2 to 12 days tylenol for pain and prednisone 20 mg BID for 5 days proair inhaler 2 purrs every 4 hours doxy 100 mg bid for both bronchitis and wound on the left elbow Forms: Patient Portal Access Activity at Discharge: Increase Activity as Tolerated Diet at Discharge: Regular Diet
--- NOTE | 2019-08-17 08:40 | Discharge Summary ---
DATE: 08/14/2019 DISCHARGE DIAGNOSES: 1. Chest wall contusion. 2. Chest wall pain. 3. Chronic obstructive pulmonary disease with bronchitis. 4. Gastroesophageal reflux disease. 5. Hypertension. 6. Hyponatremia. His last sodium was 125, coming up. This will need to be rechecked and followed up as an outpatient. 7. Olecranon bursitis with drainage from pin hole wound on the left elbow. We will start doxycycline twice a day 100 mg and possibly this will also treat his bronchitis at the same time. ATTENDING PHYSICIAN: Brennen Campbell DO REASON FOR HOSPITALIZATION: He fell yesterday, had chest pain, shortness of breath. Came to the emergency department for evaluation. He was evaluated by Dr. Holly who felt he had a chest wall contusion. CT scan of the chest was negative for fractures or any abnormalities and without contrast. EKG showing sinus rhythm. No acute changes. Troponin was negative. The patient did have a low sodium which was 121 but he drinks 4-5 beers a day and that could be the etiology of his sodium being low. He is short of breath. He smokes about 4-5 cigarettes a day and started smoking at age 7 years of age and was up to 1 pack a day for 50 years. The pain is reproducible on palpation of the chest. He does not use home oxygen. He does have COPD. While in the hospital, he was complaining pretty vehemently about this chest pain. Did a D-dimer which was elevated at 4.5. Did a CTA angiogram of the chest to rule out PE. There was no PE found on the CT angiogram of the chest. SIGNIFICANT FINDINGS: WBC 11,900, hemoglobin 10.9, sodium 123, potassium 4.8, chloride 85, total bilirubin 1.2, BUN 14, creatinine 1.0. CT of the chest was negative. CTA of the chest was no PE seen. THERAPY PROVIDED: He was given Toradol 50 mg q.8 h. which helped his pain tremendously. He was also given breathing treatments of DuoNeb q.4 h. and IV Solu-Medrol. CONDITION ON DISCHARGE: The patient was feeling better on the day of discharge. DISCHARGE INSTRUCTIONS: Follow up with Dr. Avalos in 3-15 days because of the holidays. Doxycycline 100 mg b.i.d. for 10 days. Prednisone 20 mg b.i.d. for 5 days. Albuterol inhaler 2 puffs q.4 h. p.r.n. while awake. He also has doxycycline for both bronchitis and the olecranon bursitis with drainage from the left elbow. Culture was taken of the left elbow drainage and sent to the lab. It is pending. He also needs to follow up on his sodium. The last sodium in the hospital here was 123. MTDD
== END 2019-08-14 14:15 | disposition home or self-care (01) ==
LOC: ER 11:28 → MEDSURG 13:41 → INTOOBSV 13:41
PROVIDERS: ADMIT Emergency Medicine; ATTEND Emergency Medicine
DX: J44.1 Chronic obstructive pulmonary disease with (acute) exacerbation (principal); E87.1 Hypo-osmolality and hyponatremia; R06.02 Shortness of breath; R05 Cough; R91.1 Solitary pulmonary nodule; S20.219A Contusion of unspecified front wall of thorax, initial encounter; D64.9 Anemia, unspecified; I10 Essential (primary) hypertension; E78.00 Pure hypercholesterolemia, unspecified; K21.9 Gastro-esophageal reflux disease without esophagitis; G62.9 Polyneuropathy, unspecified; M19.90 Unspecified osteoarthritis, unspecified site; Z85.118 Personal history of other malignant neoplasm of bronchus and lung; F17.210 Nicotine dependence, cigarettes, uncomplicated; Z66 Do not resuscitate; W18.30XA Fall on same level, unspecified, initial encounter
CPT/HCPCS: 86140; 80053 ×2; 84145; 84484; 85379; 85027 ×2; 83880; 71275; 71250; 94640 ×4; 94762; 94761; 93005; 93010; G0378 ×2; Q9967; J1885; 99217; 99220; J1650; J2930